=== PATIENT | female | born 1945 | race Caucasian/White ===

== ENCOUNTER 2018-03-27 15:43 | Observation (INO) | payer MEDICARE, SELFPAY ==
[2018-03-27] VITALS (13 sets, daily range): BP systolic 139–155; BP diastolic 55–79; PULSE 64–83; RESP 14–19; TEMP 36.6–36.9; O2SAT 94–100; BMI 22.6; BMI 22.1; BMI 22.2
[2018-03-27 16:06] LABS: Bedside Glucose 101 mg/dL (70-110)
--- NOTE | 2018-03-27 16:14 | ED.VISSUMM ---
- ER Visit Summary Date of Service: 03/27/18 Chief Complaint: Forgetfulness History of Present Illness: The patient is a 72 F brought in by family. They noted around 1:00 this afternoon that she seemed to be forgetful about things that she should remember. Initial example is that she noted an appointment with a Dr. Sue on her calendar and did not know who this was. Family states that she was okay earlier in the day and at lunchtime. She denies any pain. She states she just feels like her brain is not clicking like normal. Physical Examination: Vital signs are unremarkable. Patient is sitting upright in bed no acute distress. Head and neck examination unremarkable. Heart is regular rate and rhythm. Lung sounds are clear. Abdomen is soft and nontender. Neuro exam reveals an NIH score of 2. She receives 1.4 level of consciousness questions not knowing what year it is. She receives one point for very mild problems with a aphasia. Test Results: EKG is sinus at 77 with no sign of acute ischemia. Noncontrast head CT shows no acute abnormality. There is mild chronic ischemic change. CBC and chemistry studies unremarkable. Urinalysis normal. Troponin negative. Emergency Department Course and Treatment: Patient is resting comfortably on repeat examination. She was sent for CTA of the head and neck. CTA of the head is normal. CTA of the neck shows mild atherosclerotic disease. There is no significant stenosis. At this time patient be admitted for further stroke workup. Treatment Plan: [] Disposition: Admit Impression: TIA This note was generated with [employer] dictation software. It may contain incorrect words, spelling, and punctuation that were not noted in review of the chart prior to signing ED Disposition - Plan for ED Patient: Chief Complaint: Neuro S/Sx Referrals: Nicolás Ríos DO [Primary Care Provider] -
[2018-03-27 16:46] LABS: Bacteria 0 SEEN /hpf (None Seen); Mucous, Urine 0 SEEN /hpf (<or=2+); Red Blood Cells-Urine 0 SEEN /hpf (0-5)
[2018-03-27 16:46] LABS: Absolute Lymphocyte Count 2.41 X10^3/ul (0.83-4.51); Absolute Neutrophil Count 3.7 X10^3/uL (2.0-7.7); Basophil# 0.03 X10^3/uL; Basophil% 0.4 % (0-1); Eosinophil# 0.08 X10^3/uL; Eosinophils% 1.1 % (0-5); Hematocrit 39.7 % (37-47); Hemoglobin 12.9 g/dl (12.0-15.0); Lymphocyte # 2.41 X10^3/ul (4.0); Lymphocyte % 34.3 % (19-41); Mean Corp Hgb Conc 32.5 g/gl (32-36); Mean Corpuscular Hgb 30.3 pg (27.0-32.0); Mean Corpuscular Volume 93.2 fL (81-99); Mean Platelet Vol. 9.8 fl (6.2-12.0); Monocyte# 0.84 X10^3/uL; Monocyte% 11.9 % (0-10); Neutrophil # 3.66 X10^3/uL (2.7-7.7); Neutrophil % 52.2 % (47-70); POSITIVE COUNT NO; POSITIVE DIFFERENTIAL NO; POSITIVE MORPHOLOGY NO; Platelet Count 304 K/mm3 (150-450); RBC Distribution Width CV 13.5 % (11.6-14.6); RBC Distribution Width SD 44.5 fl (35.1-43.9); Red Blood Count 4.26 M/mm3 (4.2-5.4)
[2018-03-27] MEDS: 0.9% Normal Saline 1,000 ML 100 ML IV (16:47)
[2018-03-27 16:49] LABS: Anion Gap 5 (5-15); BUN 23 mg/dL (7-18); BUN/Creat Ratio 25.1 RATIO (10-20); Calcium,Total 8.7 mg/dL (8.5-10.1); Chloride 105 mmol/L (98-107); Creatinine, Serum 0.92 mg/dL (0.55-1.02); EST Glomerular Filtration Rate 64 mL/min (>60); Est Glom Filt Rate - Afr Amer 77 mL/min (>60); Estimated Creatinine Clearance 44.38 ml/min; Glucose 93 mg/dL (74-106); Potassium 3.8 mmol/L (3.5-5.1); Sodium Level 139 mmol/L (136-145)
[2018-03-27 16:51] LABS: Color, Urine Yellow (Yellow); Glucose, Dipstick Normal (Normal); Ketone-Dipstick Negative (Negative); Leukocyte Esterase-Dipstick 25 /ul (Negative); Nitrite-Dipstick Negative (Negative); Occult Blood-Urine Negative /ul (Negative); Protein-Dipstick Negative (Negative); Specific Gravity, Urine 1.005 (1.002-1.030); Urine Bilirubin Dipstick Negative (Negative); Urine Clarity Clear (Clear); Urine Urobilinogen Normal (Normal)
[2018-03-27 16:59] LABS: Squamous Epithelial Cells - UA 0-5 SEEN /hpf (5-10); White Blood Cells 0-5 SEEN /hpf (0-5)
[2018-03-27 17:20] LABS: International Normalized Ratio 1.1; Prothrombin Time (Protime)PT. 13.9 SECONDS (11.7-14.9)
[2018-03-27 17:21] LABS: Partial Thromboplast Time 28.6 Seconds (24.1-36.2)
--- NOTE | 2018-03-27 18:39 | NURSING ---
Pepper notified patient may transfer to PCU.
--- NOTE | 2018-03-27 19:03 | PCM.HP.STD ---
Problem List (1) Acute forgetfulness Status: Acute (2) Raynaud disease Status: Chronic Qualifiers: History of Present Illness Date of Admission: 03/27/18 Chief Complaint: Acute onset of forgetfulness The patient is a 72 year old F with history of Raynaud's disease on aspirin and hypertension on amlodipine came to ER after she was noticed sudden onset of forgetfulness about 1 PM this afternoon. She was not able to remember about Dr. Weldon, who is the PCP of her and had an appointment today. Her family or she denies any localized symptoms of weakness, numbness or tingling, facial droop, change in his speech or dysphagia or change in vision. In ED, ER physician noted NIH stroke scale 2 based 1 for level of consciousness, not knowing what year it is and 1 for mild problem with aphasia but to my exam NIH stroke score 0. Initial ED labs unremarkable. EKG normal sinus rhythm at [address] neck shows mild atherosclerotic disease but no evidence of hemodynamically significant stenosis. CT head unremarkable. CT brain no acute intracranial abnormality. Past Medical History Past Medical History (Chronic Problems): Chronic Problems (Last Updated 11/22/17 @ 08:28 by Jessica Walker) Raynaud disease (Chronic) Medical History: Medical History (Last Updated 11/22/17 @ 08:28 by Jessica Walker) History of pneumonia Z87.01 unusual fatigue Allergies No Known Allergies Allergy (Verified 06/29/16 10:33) Home Medications: Ambulatory Orders Medication Instructions Recorded mometasone 0.1 % topical ointment 1 applic TOPICAL QDAY #45 g 10/18/17 amlodipine 2.5 mg tablet 2.5 - 5 mg PO DAILY 11/22/17 Aspirin E.C. [Ecotrin] 81 mg PO DAILY@0800 03/27/18 Multivitamin [Multiple Vitamins] 1 tab PO DAILY 03/27/18 Smoking Status: Never smoker - *Family History Maternal History Items: - - no coronary artery disease Paternal History Items: - - no coronary artery disease Review of Systems Constitutional: Denies: Chills, Fever, Weight Change HEENT: Denies: Head Aches, Sinus Congestion, Sinus Drainage Cardiovascular: Denies: Chest Pain, Palpitations Respiratory: Denies: Cough, Shortness of breath at rest, Sputum production Gastrointestinal: Denies: Abdominal Pain, Nausea, Vomiting Genitourinary: Denies: Dysuria Musculoskeletal: Denies: Joint Pain, Joint Tenderness Skin: Denies: Rash, Wounds Neurological: Denies: Balance problems, Blurred vision, Double vision, Change in Speech, Focal weakness, Numbness, Tingling Psychiatric: Denies: Anxiety, Depression, Homicidal Ideations, Suicidal Ideations Hematologic/ Lymphatic: Denies: Easy Bruising, Easy Bleeding VTE Information - Inpt Only VTE Present on Admission: No VTE Mechan Device Prophylaxis: None - Not indicated VTE Pharm Prophylaxis ordered?: Yes Patient Problems: Active and Suspected Problems (Last Updated 11/22/17 @ 08:28 by Jessica Walker) Acute forgetfulness (Acute) - Physical Exam General: Alert, Oriented x3, Cooperative HEENT: Atraumatic, PERRLA, EOMI, Normocephalic Neck: Supple, No JVD, Negative Carotid Bruits Lungs: Clear to auscultation, Normal air movement Cardiovascular: Regular rate, Regular Rhythm, Normal S1, Normal S2, No murmurs Abdomen: Bowel Sounds Present, Soft, Non Tender, Non-Distended Extremities: No edema, Capillary Refill Less than 3 Seconds Skin: No rashes, No breakdown Musculoskeletal: No Tenderness to Palpation of Joints or Extremities Neurological: Cranial nerves II-XII grossly intact, Deep Tendon Reflexes 2+/4 and Symmetrical, Neuro grossly intact, Muscle tone normal, Sensory exam intact to light touch and pain, Coordination normal, - - NIH stroke scale 0 Psych/Mental Status: Normal Affect, Appropriate Vital Signs Temp Pulse Resp BP Pulse Ox 98.4 F 74 16 140/78 H 98 03/27/18 15:43 03/27/18 18:30 03/27/18 18:30 03/27/18 18:30 03/27/18 18:30 Oxygen Flow Rate (L/min) 2 Oxygen Delivery Method Nasal Cannula Weight: 128 lb Body Mass Index (BMI) 22.6 Finger Stick Blood Glucose 102 Laboratory Tests Past 24 Hrs 03/27/18 03/27/18 03/27/18 16:00 16:00 16:00 WBC 7.0 RBC 4.26 Hgb 12.9 Hct 39.7 MCV 93.2 MCH 30.3 MCHC 32.5 RDW 13.5 RDW Differential 44.5 H Plt Count 304 MPV 9.8 Immature Gran % (Auto) 0.100 Neut % (Auto) 52.2 Lymph % (Auto) 34.3 [place] % (Auto) 11.9 H Eos % (Auto) 1.1 Baso % (Auto) 0.4 Absolute Neuts (auto) 3.7 Absolute Lymphs (auto) 2.41 Total Counted Not Reportable PT 13.9 INR 1.1 APTT 28.6 Sodium 139 Potassium 3.8 Chloride 105 Carbon Dioxide 29.0 Anion Gap 5 BUN 23 H Creatinine 0.92 Estim Creat Clear Calc 44.38 Est GFR (MDRD) Af Amer 77 Est GFR (MDRD) Non-Af 64 BUN/Creatinine Ratio 25.1 H Glucose 93 Calcium 8.7 Troponin I < 0.015 Urine Color Urine Clarity Urine pH Ur Specific [place] Urine Protein Urine Glucose (UA) Urine Ketones Urine Occult Blood Urine Nitrite Urine Bilirubin Urine Urobilinogen Ur Leukocyte Esterase Urine RBC Urine WBC Ur Squamous Epith Cells Urine Bacteria Urine Mucus 03/27/18 16:40 WBC RBC Hgb Hct MCV MCH MCHC RDW RDW Differential Plt Count MPV Immature Gran % (Auto) Neut % (Auto) Lymph % (Auto) [place] % (Auto) Eos % (Auto) Baso % (Auto) Absolute Neuts (auto) Absolute Lymphs (auto) Total Counted PT INR APTT Sodium Potassium Chloride Carbon Dioxide Anion Gap BUN Creatinine Estim Creat Clear Calc Est GFR (MDRD) Af Amer Est GFR (MDRD) Non-Af BUN/Creatinine Ratio Glucose Calcium Troponin I Urine Color Yellow Urine Clarity Clear Urine pH 7.0 Ur Specific [place] 1.005 Urine Protein Negative Urine Glucose (UA) Normal Urine Ketones Negative Urine Occult Blood Negative Urine Nitrite Negative Urine Bilirubin Negative Urine Urobilinogen Normal Ur Leukocyte Esterase 25 H Urine RBC 0 SEEN Urine WBC 0-5 SEEN Ur Squamous Epith Cells 0-5 SEEN Urine Bacteria 0 SEEN Urine Mucus 0 SEEN POC Glucose 03/27/18 15:55 POC Glucose 101 Assessment/Plan All Active Problems (Last Updated 11/22/17 @ 08:28 by Jessica Walker) Acute forgetfulness (Acute) Acute bronchitis (Acute) Pneumonia (Acute) Chest pain (Acute) The patient is a 72 year old F with history of Raynaud's disease on aspirin and hypertension on amlodipine came to ER after she was noticed sudden onset of forgetfulness about 1 PM this afternoon. She was not able to remember about Dr. Weldon, who is the PCP of her and had an appointment today. Her family or she denies any localized symptoms of weakness, numbness or tingling, facial droop, change in his speech or dysphagia or change in vision. In ED, ER physician noted NIH stroke scale 2 based 1 for level of consciousness, not knowing what year it is and 1 for mild problem with aphasia but to my exam NIH stroke score 0. Initial ED labs unremarkable. EKG normal sinus rhythm at [address] neck shows mild atherosclerotic disease but no evidence of hemodynamically significant stenosis. CT head unremarkable. CT brain no acute intracranial abnormality. 1. Acute onset of forgetfulness, exact etiology unclear: Rule out TIA/stroke: Patient is being admitted for observation as per TIA protocol. MRI brain without contrast, 2D echo ordered. Neurochecks as per stroke protocol. Neuro consult. PT/OT and speech evaluation ordered. Blood pressure is controlled. Glucose in BMP 93. Continue aspirin. Fasting lipid profile and ESR ordered. 2. Hypertension: Blood pressure is controlled as per her age. Continue amlodipine. 3. Other comorbidities include Reynaud;s disease DVT prophylaxis, moderate risk: On heparin 500 subcutaneous twice daily. This note was generated with [employer] dictation software. Every effort was made to ensure accuracy, however computerized video game technician mistakes may persist. Clinical Impression(s) from Imaging Studies Brain CT 03/27/18 16:19 IMPRESSION: No acute intracranial abnormality. Mild chronic ischemic changes. Chest X-Ray 03/27/18 16:30 IMPRESSION: No acute thoracic pathology. Head CTA 03/27/18 16:56 IMPRESSION: Normal [place] without a demonstrated aneurysm or hemodynamically significant stenosis. Neck CTA 03/27/18 16:57 IMPRESSION: Mild atherosclerotic disease. No evidence for hemodynamically significant stenosis utilizing NASCET criteria Code Visit OBSV E&M: 26219 Initial observation care L3
[2018-03-27 19:46] LABS: Thyroid Stim Hormone (TSH) 1.09 uIU/mL (0.358-3.74)
[2018-03-27 20:56] LABS: Erythrocyte Sedimentation Rate 32 mm/hr (0-30)
[2018-03-27] MEDS: Famotidine 20 MG Tablet PO (22:01)
[2018-03-27] MEDS: Heparin Injection (Vial) 5,000 UNIT/ML VIAL 5000 UNIT SC (22:01)
[2018-03-28] VITALS (9 sets, daily range): BP systolic 109–127; BP diastolic 53–88; PULSE 60–66; RESP 14–18; TEMP 36.7–36.9; O2SAT 97–99; BMI 22.1
[2018-03-28 06:31] LABS: Cholesterol 185 mg/dL (200); High Density Lipoprotein 54 mg/dL; Triglycerides 65 mg/dL; Very Low Density Lipoprotein 13 mg/dL (5-40)
[2018-03-28] MEDS: Aspirin E.C. 81 MG Tablet PO (09:09)
[2018-03-28] MEDS: amLODIPine 2.5 MG Tablet PO (09:09)
[2018-03-28] MEDS: Heparin Injection (Vial) 5,000 UNIT/ML VIAL 5000 UNIT SC (09:09)
[2018-03-28] MEDS: Famotidine 20 MG Tablet PO (09:09)
[2018-03-28] MEDS: Multivitamins,Therapeutic Tablet 1 TABLET PO (09:09)
--- NOTE | 2018-03-28 09:38 | PCM.CONS.GEN ---
Problem List (1) Acute forgetfulness Status: Acute (2) Amnesia Status: Acute Reason for Consult Date of Consultation: 03/28/18 Reason for Consultation: Amnesia History of Present Illness: The patient is a 72 year old CF with PMH HTN, Raynaud's phenomenon admitted with acute episode of amnesia. History is obtained from patient, her and medical records. Per yesterday (03/27/18) around 1 PM she was looking at her calendar and had a doctor's name written on it but could not remember who it was, though she had visited that same doctor multiple times in the past, per she could not remember what she did that morning, or what she ate for lunch, per patient she could not remember the year when she was in the ED, per she was repeating herself a lot during the episode but probably she became amnestic for few hours. At present she is back to her baseline, denies any SANDS, visual symptoms, sensory loss, focal motor weakness, or speech disturbances. Denies any witnessed seizures. Lives with , denies any falls, does drive, does not use cane or walker to ambulate. Per ED documentation NIHSS was 2 on admission but per hospitalist documentation NIHSS was 0. 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 SBP on admission was >150 mmHg. [] Past Medical History Past Medical History (Chronic Problems): Chronic Problems (Last Updated 11/22/17 @ 08:28 by Jessica Walker) Raynaud disease (Chronic) Medical History: Medical History (Last Updated 11/22/17 @ 08:28 by Jessica Walker) History of pneumonia Z87.01 unusual fatigue Allergies No Known Allergies Allergy (Verified 06/29/16 10:33) Home Medications: Ambulatory Orders Medication Instructions Recorded mometasone 0.1 % topical ointment 1 applic TOPICAL QDAY #45 g 10/18/17 amlodipine 2.5 mg tablet 2.5 - 5 mg PO DAILY 11/22/17 Aspirin E.C. [Ecotrin] 81 mg PO DAILY@0800 03/27/18 Multivitamin [Multiple Vitamins] 1 tab PO DAILY 03/27/18 Lives: Spouse/ Significant Other Smoking Status: Never smoker Alcohol: Occasional Drugs: None - *Family History Maternal History Items: - - no coronary artery disease Paternal History Items: - - no coronary artery disease Review of Systems Constitutional: Reports: - - complete ROS negative except as documented in HPI Patient Problems: Active and Suspected Problems (Last Updated 11/22/17 @ 08:28 by Jessica Walker) Acute forgetfulness (Acute) Amnesia (Acute) - Physical Exam General: Alert HEENT: Normocephalic Neck: Supple Lungs: Normal air movement Cardiovascular: Normal S1, Normal S2 Abdomen: Bowel Sounds Present Extremities: No cyanosis Skin: No rashes Musculoskeletal: No Tenderness to Palpation of Joints or Extremities Neurological: Cranial nerves II-XII grossly intact, Deep Tendon Reflexes 2+/4 and Symmetrical, Neuro grossly intact, Motor Exam 5/5 strength throughout, Muscle tone normal, Sensory exam intact to light touch and pain, Coordination normal Psych/Mental Status: Normal Affect Vital Signs Temp Pulse Resp BP Pulse Ox 98.4 F 66 18 127/88 H 98 03/28/18 08:10 03/28/18 08:10 03/28/18 08:10 03/28/18 08:10 03/28/18 08:10 Oxygen Delivery Method Room Air Weight: 57.7 kg Body Mass Index (BMI) 22.1 Intake and Output for Last 24 Hours 03/26/18 03/27/18 03/28/18 23:59 23:59 23:59 Intake Total 606 / 606 552 / 552 Balance 606 / 606 552 / 552 Laboratory Tests Past 24 Hrs 03/27/18 03/27/18 03/28/18 20:28 20:28 05:20 ESR 32 H Troponin I < 0.015 Triglycerides 65 Cholesterol 185 LDL Cholesterol 118 VLDL Cholesterol 13 HDL Cholesterol 54 Assessment/Plan All Active Problems (Last Updated 11/22/17 @ 08:28 by Jessica Walker) Acute forgetfulness (Acute) Amnesia (Acute) Acute bronchitis (Acute) Pneumonia (Acute) Chest pain (Acute) The patient is a 72 year old CF with PMH HTN, Raynaud's phenomenon admitted with acute episode of amnesia. History is obtained from patient, her and medical records. Per yesterday (03/27/18) around 1 PM she was looking at her calendar and had a doctor's name written on it but could not remember who it was, though she had visited that same doctor multiple times in the past, per she could not remember what she did yesterday morning, or what she ate for lunch, per patient she could not remember the year when she was in the ED, per she was repeating herself a lot during the episode but probably she became amnestic for few hours. At present she is back to her baseline, denies any SANDS, visual symptoms, sensory loss, focal motor weakness, or speech disturbances. Denies any witnessed seizures. Lives with , denies any falls, does drive, does not use cane or walker to ambulate. Per ED documentation NIHSS was 2 on admission but per hospitalist documentation NIHSS was 0. 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 SBP on admission was >150 mmHg. Impression Unlikely to be TIA/Stroke or seizures at present Likely TGA Plan -MRI brain and CTA head/neck images reviewed -On ASA -Await EEG -Labs reviewed- UA-LE 25, WBCs 0-5, ESR 32, rest unremarkable -Better control of BP, will defer to primary team -Further medical management per primary team -GI/DVT prophylaxis -Fall precautions -Follow up with Neurology as outpatient in 6 weeks -Please call with questions if any -Thank you for allowing us to participate in patient's care and management I spent 60 minutes taking history, doing physical examination, reviewing medical records, coordinating care and counseling the patient. Code Visit Inpatient E&M: 60909 Init Hosp L3
--- NOTE | 2018-03-28 12:24 | PCM.PN.HOSP ---
Patient Problems: Active and Suspected Problems (Last Updated 11/22/17 @ 08:28 by Jessica Walker) Acute forgetfulness (Acute) Amnesia (Acute) Subjective: Doing well and feels back to baseline. No numbness, tinglin gin her extremities. No weakness, or blurry vision and she denies headaches. This episode of amnesia was transient, and acute. She denies having anything similar in the past. Vitals/I&O's: Vital Signs Temp Pulse Resp BP Pulse Ox 98.4 F 66 18 127/88 H 98 03/28/18 08:10 03/28/18 08:10 03/28/18 08:10 03/28/18 08:10 03/28/18 08:10 Oxygen Delivery Method Room Air Weight: 127 lb 3.307 oz Body Mass Index (BMI) 22.1 Intake and Output for Last 24 Hours 03/26/18 03/27/18 03/28/18 23:59 23:59 23:59 Intake Total 606 / 606 552 / 552 Balance 606 / 606 552 / 552 General: Alert, Oriented x3, Cooperative, No apparent distress HEENT: Atraumatic, PERRLA, EOMI, Normocephalic Oral: Moist Mucosa Neck: Supple, No JVD Lungs: Clear to auscultation, Normal air movement, No rhonchi, No wheeze, No rales Cardiovascular: Regular rate, Regular Rhythm, Normal S1, Normal S2, No murmurs Abdomen: Soft, Non Tender, Non-Distended, No Hepato-splenomegaly Extremities: No clubbing, No cyanosis, No edema Neurological: Cranial nerves II-XII grossly intact, Neuro grossly intact, Motor Exam 5/5 strength throughout, Sensory exam intact to light touch and pain, - - No facial droop, tongue deviation Psych/Mental Status: Normal Affect, Appropriate Laboratory Results 03/27/18 20:28: ESR 32 H 03/27/18 20:28: Troponin I < 0.015 03/28/18 05:20: Triglycerides 65, Cholesterol 185, LDL Cholesterol 118, VLDL Cholesterol 13, HDL Cholesterol 54 Current Medications Acetaminophen (Tylenol) 650 mg PO Q4H PRN PRN PRN Reason: Headache/Temp>99F Amlodipine Besylate (Norvasc) 2.5 mg PO DAILY [facility]AL Last Admin: 03/28/18 09:09 Dose: 2.5 mg Aspirin (Ecotrin) 81 mg PO DAILY@0800 [facility] Last Admin: 03/28/18 09:09 Dose: 81 mg Famotidine (Pepcid) 20 mg PO BID [facility] Last Admin: 03/28/18 09:09 Dose: 20 mg Heparin Sodium (Porcine) (Heparin Na) 5,000 unit SC BID [facility] Last Admin: 03/28/18 09:09 Dose: 5,000 unit Sodium Chloride () 250 mls @ 15 mls/hr IV .[id number] PRN PRN Reason: SALINE FLUSH Labetalol HCl (Trandate) 10 mg IV Q10M PRN PRN Reason: MAINTAIN SBP GOALS Stop: 03/28/18 19:07 Multivitamins (Multivitamin) 1 tablet PO DAILY@0800 [facility] Last Admin: 03/28/18 09:09 Dose: 1 tablet Sodium Chloride () 5 - 30 ml IV UD PRN PRN Reason: SALINE FLUSH Triamcinolone Acetonide (Kenalog Ointment) 1 applic TOPICAL DAILY [facility] Last Admin: 03/28/18 09:09 Dose: Not Given Medical Necessity - Tobacco Use Smoking Status: Never smoker Assessment/Plan All Active Problems (Last Updated 11/22/17 @ 08:28 by Jessica Walker) Acute forgetfulness (Acute) Amnesia (Acute) 1. Acute amnesia - She presented with confusion/forgetfullness - Workup in the ER and this morning (CTA neck/head, and MRI brain) r/o stroke - EEG was performed today per neurology, awaiting read - She is on ASA at home and will continue, will not add plavix as this is not a stroke - If EEG is normal will DC home today with follow-up to PCP and neurology for further possible work-up including metabolic causes - PT/OT and speech are also consulted - BP on admission was elevated however currently back at baseline per the patient at 110-130 systolic - No changes in medications at this time will monitor 2. Reynauds - stable - c/w norvasc DVT PPX: Heparin SC Diet: Regular Dispo: DC home today or tomorrow with f/u PCP and neuro Code Visit Inpatient E&M: 27263 Subs Hosp L2
--- NOTE | 2018-03-28 13:18 | EEG ---
- Electroencephalogram Date of service 03/28/2018 History EEG is being done in this 72 yr F to rule out seizures EEG Description: This is an 18 channel EEG with 10-20 lead placement system. Bipolar montages, Referential and Circumferential montages were reviewed. Photic stimulation and Hyperventilation were performed. The posterior dominant rhythm is 10-11 HZ synchronous, symmetric, reacting to eye opening and closing. Photo stimulation elicited normal driving response but no abnormal photoparoxysmal response, Hyperventilation did not elicit any abnormal photoparoxysmal response. Sleep was identified. There is no abnormal background slowing noted. There was overall low voltage waveforms noted throughout the record. There was no epileptiform discharges or electrographic seizures noted during this recording. EEG Interpretation This is a normal awake and asleep EEG. There is no epileptiform discharges or electrographic seizures noted during the record.
--- NOTE | 2018-03-28 15:01 | PCM.DC ---
- Discharge Diagnoses Current Active Problems: Current Active and Chronic Problems (Last Updated 11/22/17 @ 08:28 by Jessica Walker) Acute forgetfulness (Acute) Amnesia (Acute) You will use the following diet at home:: Regular Your food should be the consistency of: Regular Discharge Activity: Return to Normal Activity Allergies/Adverse Reactions: Allergies No Known Allergies Allergy (Verified 06/29/16 10:33) Medications to take at Discharge mometasone 0.1 % topical ointment 1 applic TOPICAL QDAY #45 g 10/18/17 amlodipine 2.5 mg tablet 2.5 - 5 mg PO DAILY 11/22/17 Aspirin E.C. [Ecotrin] 81 mg PO DAILY@0800 03/27/18 Multivitamin [Multiple Vitamins] 1 tab PO DAILY 03/27/18 Primary Care Physician: Nicolás Ríos DO [Primary Care Provider] - Please follow up with your Primary Care Physician in: 3-5 days Test Results: Test results from this visit will be discussed in further detail at your follow-up appointment, if applicable. Please Follow Up With: Alexa Hutchinson MD When: 2-4 weeks Proposed Discharge Date: 03/28/18
--- NOTE | 2018-03-28 15:07 | PCM.DC.SUM ---
Discharge Date and Diagnosis - Problem List Patient Problems: Active and Suspected Problems (Last Updated 11/22/17 @ 08:28 by Jessica Walker) Acute forgetfulness (Acute) Amnesia (Acute) Date of Admission: 03/27/18 Date of Discharge: 03/28/18 - Primary Discharge Diagnosis Active and Suspected Problems (Last Updated 11/22/17 @ 08:28 by Jessica Walker) Acute forgetfulness (Acute) Amnesia (Acute) - Secondary Discharge Diagnosis Chronic Problems (Last Updated 11/22/17 @ 08:28 by Jessica Walker) Raynaud disease (Chronic) Hospital Course and Treatment Imaging Results: CT Brain: IMPRESSION: No acute intracranial abnormality. Mild chronic ischemic changes CXR: IMPRESSION: No acute thoracic pathology CTA Head: IMPRESSION: Normal [place] without a demonstrated aneurysm or hemodynamically significant stenosis. CTA Neck: IMPRESSION: Mild atherosclerotic disease. No evidence for hemodynamically significant stenosis utilizing NASCET criteria MRI Brain: IMPRESSION: Moderate periventricular white matter ischemic change without evidence for acute infarct. 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 Incidental finding of Chiari I malformation. EEG: This is an 18 channel EEG with 10-20 lead placement system. Bipolar montages, Referential and Circumferential montages were reviewed. Photic stimulation and Hyperventilation were performed. The posterior dominant rhythm is 10-11 HZ synchronous, symmetric, reacting to eye opening and closing. Photo stimulation elicited normal driving response but no abnormal photoparoxysmal response, Hyperventilation did not elicit any abnormal photoparoxysmal response. Sleep was identified. There is no abnormal background slowing noted. There was overall low voltage waveforms noted throughout the record. There was no epileptiform discharges or electrographic seizures noted during this recording. EEG Interpretation This is a normal awake and asleep EEG. There is no epileptiform discharges or electrographic seizures noted during the record. Consultantations: Neurology Operations: None Summary of Care Provided: HPI: The patient is a 72 year old F with history of Raynaud's disease on aspirin and hypertension on amlodipine came to ER after she was noticed sudden onset of forgetfulness about 1 PM this afternoon. She was not able to remember about Dr. Weldon, who is the PCP of her and had an appointment today. Her family or she denies any localized symptoms of weakness, numbness or tingling, facial droop, change in his speech or dysphagia or change in vision. In ED, ER physician noted NIH stroke scale 2 based 1 for level of consciousness, not knowing what year it is and 1 for mild problem with aphasia but to my exam NIH stroke score 0. Initial ED labs unremarkable. EKG normal sinus rhythm at [address] neck shows mild atherosclerotic disease but no evidence of hemodynamically significant stenosis. CT head unremarkable. CT brain no acute intracranial abnormality Hospital Course: 1. Amnesia - She presented with acute onset amnesia on the day of admission without weakness, numbness or tingling. Per her and her she never had anything like this before. Her symptoms resolved fairly quickly and imaging was negative for stroke and this was unlikely to be a TIA per neurology. An EEG was also normal on day of discharge. She will need further investigation as an outpatient and will have follow-up with Neurology. 2. Raynauds - She is on norvasc 2.5 mg for this issues and this remains unchanged. There was some discussion if this should be increase because of elevated SBP in the ER on admission, however this resolved on day of discharge and both and patient state that she is usually low anyway. Greater than 30 minutes was spent on discharging patient. Discharge Activity: Return to Normal Activity Home Medications: Medications to take at Discharge mometasone 0.1 % topical ointment 1 applic TOPICAL QDAY #45 g 10/18/17 amlodipine 2.5 mg tablet 2.5 - 5 mg PO DAILY 11/22/17 Aspirin E.C. [Ecotrin] 81 mg PO DAILY@0800 03/27/18 Multivitamin [Multiple Vitamins] 1 tab PO DAILY 03/27/18 Primary Care Physician: Nicolás Ríos DO [Primary Care Provider] - Please follow up with your Primary Care Physician in: 3-5 days Please Follow Up With: Alexa Hutchinson MD When: 2-4 weeks Medical Necessity - Tobacco Use Smoking Status: Never smoker Meaningful Use Info Meaningful Use Diagnoses (Choose all that apply): None applicable Code Visit Inpatient E&M: 37997 Disch Hosp - Greater than 30 minutes was spent discharging patient
== END 2018-03-28 15:30 | disposition home or self-care (01) ==
LOC: ED 16:24 → PCU 18:37
PROVIDERS: Admitting Provider Internal Medicine; Emergency Provider Emergency Medicine; Family Provider Student in an Organized Health Care Education/Training Program; PCP Student in an Organized Health Care Education/Training Program; Visit Provider Family Medicine
DX: R41.3 Other amnesia (principal); I73.00 Raynaud's syndrome without gangrene; I10 Essential (primary) hypertension; R29.702 NIHSS score 2; Z79.899 Other long term (current) drug therapy; Z79.82 Long term (current) use of aspirin; R47.01 Aphasia
CPT/HCPCS: 36415; 70450; 70496; 70498; 70551; 71045; 80048; 80061; 81001; 82962; 84443; 84484; 85025; 85610; 85652; 85730; 92507; 93005; 93306; 95819; 96360; 96361; 96372; 97161; 97166; 99218; 99283; J7030; Q9967; A4216; G0378

== ENCOUNTER → 2020-04-14 07:16 | Outpatient (CLI) | payer MEDICARE, SELFPAY ==
[2020-04-02 09:12] VITALS: BMI 22.1
--- NOTE | 2020-04-14 07:16 | BI_ITS ---
MAMMOGRAPHY - BILATERAL SCREENING REASON FOR EXAM: Female, 74 years old. Routine annual screening examination. PERTINENT HISTORY: Aunt with breast cancer. TECHNIQUE: Digital bilateral breast fátima (3D mammographic acquisition) in the CC and MLO projections. 2-D mediolateral oblique (MLO) and craniocaudad (CC) views of both breasts were obtained. CAD: Full Field Digital Mammography with Computer Added Detection was performed. COMPARISON: Comparison is made with prior study dated 07/13/2017. FINDINGS: Breast Composition: There are scattered areas of fibroglandular density. There are no dominant masses or suspicious calcifications. Stable small benign appearing bilateral axillary lymph nodes. No other significant abnormalities are identified. There has been no significant change since the prior study. BI/SCREEN MAMM (CAD) W/FÁTIMA BILAT IMPRESSION: Stable bilateral screening mammogram. Yearly follow-up mammogram recommended. (A) ASSESSMENT CATEGORY: BIRADS Category 2: Benign. A letter regarding these results will be sent to the patient by the facility within 30 days. Approximately 10% of breast cancers are not detected by mammography. A normal mammogram should not delay biopsy of a clinically suspicious abnormality. [id number] Electronically Signed: Colt Montoya, at 8:20 EDT , Service support ,
== END ==
PROVIDERS: PCP Student in an Organized Health Care Education/Training Program; Referring Provider Nurse Practitioner Women's Health; Visit Provider Nurse Practitioner Women's Health
DX: Z12.31 Encounter for screening mammogram for malignant neoplasm of breast (principal); Z80.3 Family history of malignant neoplasm of breast
CPT/HCPCS: 77063; 77067

== ENCOUNTER → 2021-04-09 09:27 | Outpatient (CLI) | payer MEDICARE, SELFPAY ==
--- NOTE | 2021-04-09 09:29 | US_ITS ---
STUDY: ULTRASOUND BREAST - RIGHT REASON FOR EXAM: Female, 75 years old. Abnormal screening mammogram. TECHNIQUE: Axial and longitudinal images of the RIGHT breast were performed with a high resolution ultrasound transducer. # OF IMAGES: 31 COMPARISON: Comparison is made with prior mammogram done earlier in the day. FINDINGS: RIGHT Breast: No sonographic abnormality is seen. There is asymmetrical breast tissue. US/Breast Limited Unilateral IMPRESSION: No sonographic abnormality is seen. ASSESSMENT CATEGORY: BIRADS Category 1: Negative. A letter regarding these results will be sent to the patient by the facility within 30 days. Electronically Signed: Colt Montoya MD at 11:11 EDT , Service support ,
--- NOTE | 2021-04-09 09:29 | BI_ITS ---
MAMMOGRAPHY - BILATERAL DIAGNOSTIC REASON FOR EXAM: Female, 75 years old. Right breast lump with tenderness. PERTINENT HISTORY: Aunt with breast cancer. TECHNIQUE: Digital bilateral breast joleen (3D mammographic acquisition) in the CC and MLO projections. 2-D mediolateral oblique (MLO) and craniocaudad (CC) views of both breasts were obtained. CAD: Full Field Digital Mammography with Computer Added Detection was performed. COMPARISON: Comparison is made with prior examination dated 04/14/2020 and 07/13/2017. FINDINGS: Breast Composition: There are scattered areas of fibroglandular density. Questionable 2.2 cm x 1.9 cm nodular density in the upper retroareolar region of the right breast. Correlation with ultrasound is recommended. No other significant abnormalities are identified. BI/DIAG MAMM W/CAD, BILAT IMPRESSION: Possible 2.2 cm x 1.9 cm nodule in the upper retroareolar region of the right breast as described. Correlation with ultrasound is recommended. ASSESSMENT CATEGORY: BIRADS Category 0: Incomplete. Need additional imaging evaluation. A letter regarding these results will be sent to the patient by the facility within 30 days. Approximately 10% of breast cancers are not detected by mammography. A normal mammogram should not delay biopsy of a clinically suspicious abnormality. Electronically Signed: Colt Montoya MD at 10:50 EDT , Service support ,
== END ==
PROVIDERS: PCP Student in an Organized Health Care Education/Training Program; Referring Provider Nurse Practitioner Women's Health; Visit Provider Nurse Practitioner Women's Health
DX: N63.41 Unspecified lump in right breast, subareolar (principal)
CPT/HCPCS: 76642; 77062; 77066; G0279

== ENCOUNTER → 2022-04-12 | Outpatient (CLI) | payer MEDICARE, SELFPAY ==
--- NOTE | 2022-04-12 08:42 | BI_ITS ---
MAMMOGRAPHY - BILATERAL SCREENING REASON FOR EXAM: Female, 76 years old. Routine annual screening examination. PERTINENT HISTORY: Aunt with breast cancer. TECHNIQUE: Digital bilateral breast fátima (3D mammographic acquisition) in the CC and MLO projections. 2-D mediolateral oblique (MLO) and craniocaudad (CC) views of both breasts were obtained. CAD: Full Field Digital Mammography with Computer Added Detection was performed. COMPARISON: Comparison is made with prior study 04/09/2021 and 04/14/2020. FINDINGS: Breast Composition: The breasts are heterogeneously dense, which may obscure small masses. There are no dominant masses or suspicious calcifications. Stable asymmetry of breast tissue or more breast tissue is seen in the upper central portion of the right breast as compared to the left side. Stable small benign appearing bilateral axillary lymph nodes. No other significant abnormalities are identified. There has been no significant change since the prior study. BI/SCRN MAMM (CAD)W/FÁTIMA BILAT IMPRESSION: Stable bilateral screening mammogram. Yearly follow-up mammogram recommended. (A) ASSESSMENT CATEGORY: BIRADS Category 2: Benign. A letter regarding these results will be sent to the patient by the facility within 30 days. Approximately 10% of breast cancers are not detected by mammography. A normal mammogram should not delay biopsy of a clinically suspicious abnormality. [id number] Electronically Signed: Colt Montoya MD at 9:49 EDT ,
== END | disposition home or self-care (01) ==
LOC: OPBI 08:41
PROVIDERS: PCP Student in an Organized Health Care Education/Training Program; Visit Provider Surgery
DX: Z12.31 Encounter for screening mammogram for malignant neoplasm of breast (principal)
CPT/HCPCS: 77063; 77067

== ENCOUNTER → 2022-06-09 | Outpatient (CLI) | payer MEDICARE, SELFPAY ==
--- NOTE | 2022-06-09 16:46 | RAD_ITS ---
STUDY: XR Chest 2 Views 06/09/2022 4:52 PM REASON FOR EXAM: Female, 76 years old. CHEST PAIN shortness of breath COMPARISON: 03/27/2018 TECHNIQUE: XR Chest 2 Views FINDINGS: There is no demonstrated pleural abnormality. Normal heart size. Normal mediastinum. Normal ezequiel. Prominent appearing increased interstitial lung markings. Normal visualized pulmonary arteries. There is atherosclerotic calcification of the aortic arch with tortuosity. There are diffuse degenerative changes of the visualized thoracic spine. There is degenerative osteoarthritis of the bilateral shoulders. There is no demonstrated abnormality of the visualized soft tissue structures of the upper abdomen. RAD/Chest PA and Lateral IMPRESSION: There are no acute findings. Electronically Signed: Dhaval Hamilton MD at 16:57 EDT ,
== END | disposition home or self-care (01) ==
LOC: MTRAD 16:45
PROVIDERS: PCP Student in an Organized Health Care Education/Training Program; Referring Provider Physician Assistant; Visit Provider Physician Assistant
DX: R06.02 Shortness of breath (principal)
CPT/HCPCS: 71046

== ENCOUNTER → 2022-07-14 | Outpatient (CLI) | payer MEDICARE, SELFPAY ==
[2022-07-14 10:13] LABS: Erythrocyte Sedimentation Rate 27 mm/hr (0-30)
[2022-07-14 10:34] LABS: CRP 3.84 mg/L (0.0-3.0); Rheumatoid Factor < 10.0 IU/mL (<15)
[2022-07-15 14:09] LABS: ANTINUCLEAR ANTIBODIES DIRECT Positive (Negative); Anti-Centromere B Ab <0.2 AI (0.0-0.9); Anti-Chromatin <0.2 AI (0.0-0.9); Anti-Jo <0.2 AI (0.0-0.9); Anti-Scleroderma-70 AB <0.2 AI (0.0-0.9); RNP Ab 1.3 AI (0.0-0.9); SJOGREN'S Anti-SS-A test 2.9 AI (0.0-0.9); SJOGREN'S Anti-SS-B test < 0.2 AI (0.0-0.9); Smith Ab <0.2 AI (0.0-0.9)
[2022-07-15 20:48] LABS: Anti-dsDNA Ab 1 IU/mL (0-9)
[2022-07-16 16:09] LABS: Cytoplasmic Ab (C-ANCA) <1:20 titer (Neg:<1:20)
[2022-07-16 18:34] LABS: CCP IgG Antibodies 26 units (0-19)
== END | disposition home or self-care (01) ==
LOC: PAVLAB 09:35
PROVIDERS: PCP Student in an Organized Health Care Education/Training Program; Referring Provider Internal Medicine Critical Care Medicine; Visit Provider Internal Medicine Critical Care Medicine
DX: J84.9 Interstitial pulmonary disease, unspecified (principal)
CPT/HCPCS: 36415; 85652; 86038; 86140; 86200; 86225; 86235; 86256; 86431

== ENCOUNTER → 2022-07-21 | Outpatient (CLI) | payer MEDICARE, SELFPAY ==
--- NOTE | 2022-07-21 14:16 | PFTCOMP_ITS ---
COMPLETE PULMONARY FUNCTION TEST INTERPRETATION Brief HPI: Patient is a 76-year-old female, currently under the care of myself, who presents to [facility] for complete pulmonary function tests secondary to diagnosis of NSIP. Respiratory therapist reports good effort and reproducible results. Interpretation: Forced expiration spirometry shows no large airways obstructive ventilatory defect with an FEV1 of 81% predicted. There is no significant bronchodilator response by strict ATS criteria. Spirograms are of good quality and plateau normally. The respiratory flow volume loop shows a normal pattern. Lung volumes by body plethysmography show a moderately decreased total lung capacity at 2.91 L, 63% predicted. All other lung volumes are reduced symmetrically. Diffusion capacity by carbon monoxide is moderately decreased at 54% predicted. The airway resistance is normal. No previous pulmonary function tests were available for review. Impression: Moderate restrictive ventilatory defect with a symmetric reduction diffusion capacity
== END | disposition home or self-care (01) ==
LOC: PSN 10:40
PROVIDERS: PCP Student in an Organized Health Care Education/Training Program; Referring Provider Internal Medicine Critical Care Medicine; Visit Provider Internal Medicine Critical Care Medicine
DX: J84.9 Interstitial pulmonary disease, unspecified (principal)
CPT/HCPCS: 94060; 94726; 94729

== ENCOUNTER → 2022-10-01 | Outpatient (CLI) | payer MEDICARE, SELFPAY ==
--- NOTE | 2022-10-01 13:05 | PR.OPITP_ITS ---
General Information2 - General Information Admitting Diagnosis: Pulmonary Fibrosis Secondary Diagnosis: Raynauds Syndrome without gangrene - Personal Learning Style/Barriers Personal Learning Style:: Audio/Visual, Written Barriers to Learning: Vision impaired - glasses Stage of change r/t lifestyle modifications: Prepared Educational Classes NM: Living with Chronic Lung Disease: Initial Assessment, Breathing Retraining: Initial Assessment, Exercise: Initial Assessment, Airway clearance: Initial Assessment - Education/Goals Individual Counseling: Initial Assessment: High Blood Pressure, Sedentary Lifestyle NM Patient Goals: Increase muscle strength: Initial Assessment, Improve energy level: Initial Assessment, Improve knowledge of lung disease: Initial Assessment, Improve my quality of life: Initial Assessment Exercise - Initial Assessment - Visit Date of Eval: 10/01/22 Session Number:: 0 - pre-program evaluation - Problem/Goals Problems: No regular exercise, Knowledge deficit exercise guidelines, Knowledge deficit exercise safety Goals:: Resistance: 2-3x/weekly - Physician Prescribed Exercise Modalities: Treadmill, Airdyne, NuStep Frequency (days/week): 3 Duration (Minutes):: 30-45 Intensity: 60-80% of age predicted maximum heart rate reserve Current METSs:: 3.0 Target HR:: 120 - 93-120 THRR Resting Blood Pressure: 133/72 EKG Type: Sinus rhythm - Plan Plan and Plan to Review:: Benefits of exercise, Core components of exercise, How to measure dyspnea level, How to monitor dyspnea level, Exercise intensity, Exercise safety guideline, Home exercise guidelines, Shauna: 3-4/11-13 Home Exercise Mode: Walking Nutrition/Wt Mgmt - Initial - Visit Date of Eval: 10/01/22 Session Number:: 0 - pre-program evaluation - Problems/Goals Goals: BMI 21-25 - Weight Management Admit Height:: 5 ft 4 in Admit Weight:: 125 lb Admit BMI:: 21.4 - Intervention Referral to dietitian:: Yes - low BMI concern Will attend diet classes:: Yes Intervention/Plan: Instruct on ideal BMI & set weight loss goal w/patient - Plan Nutrition Plan: Yes Review BMI or WC & identify target wt & strategies for wt control, Yes Nutrition education class:, Yes Education re: Need for ongoing weight monitoring Psychosocial - Initial Assess - Visit Date of Eval: 10/01/22 Session Number:: 0 - pre-program evaluation - Problems/Goals History of Emotional Disorders: None - Psychosocial Test Tool Used:: Pulmonary QOL, PHQ-9 Questionnaire - Referral to Behavioral Health PS - Interventions: Yes Attend Stress Management Classes, No Referral to [facility] if PHQ-9 score >9:, No Referral to [facility], No Referral to Physician if PHQ-9 if score is 5-9: - Intervention/Plan: See List Interventions/Plan:: Assess stressors,coping strategies & signs of derpression on admission, Instruct/assist pt to develop coping & personal stress Mgt strategies, Instruct patient to recognize signs & symptoms of depression, Instruct patient to recog Oxygen & Oxygen Titration Init - Visit Date of Eval: 10/01/22 Session Number:: 0 - pre-program evaluation - Initial Assessment Oxygen on Admission: None Core Components - Initial - Visit Date of Eval: 10/01/22 Session Number:: 0 - pre-program evaluation - Hypertension Hypertension Diagnosis:: Hypertension ICD-10 I10 [place] [employer] Hypertension Guidelines: [place] [employer] Hypertension Guidelines. Normal BP Less than 120/80. Elevated BP 120/80. Hypertension Stage 1: BP 130-139/80-89. Hypertesnion Stage 2: BP 140 or higher/90 or higher. Hypertension Crisis: BP higher than 180/120 Blood Pressure: 133/72 Outcomes/Goals: Able to verbalize/achieve optimal blood pressure <130/80, Incorporates diet changes & exercise for blood pressure control by DC - Exacerbation Mgmt & Airway Clearance Problems:: No home O2 Patient Reports:: No cough Plan: Monitor SpO2 rest & with exercise, Train O2 safety & systems - Medication Medication Goals: Adherence to prescribed medications, Correct technique/timing & care of MDI, DPI, nebulizer, and spacer. - Diabetes Diabetes:: No Core Components - 30 DAYS Core Components - 60 DAYS Core Components - 90 DAYS Core Components - Final Patient Health Questionnaire Initial Assessment 1. Little interest or pleasure in doing things: Not at all 2. Feeling down, depressed, or hopeless: Several days 3. Trouble falling or staying asleep, or sleeping too much: Not at all 4. Feeling tired or having little energy: Nearly every day 5. Poor appetite or overeating: Not at all 6. Feeling bad about yourself -- or that you are a failure or have let yourself or your family down: Not at all 7. Trouble concentrating on things, such as reading the newspaper or watching television: Not at all 8. Moving or speaking so slowly that other people could have noticed. Or the opposite - being so fidgety or restless that you have been moving around a lot more than usual: Not at all How difficult have these problems made it for you to do your work, take care of things at home, or get along with other people?: Somewhat difficult Total Score: 4 Knowledge Questionaire (BCKQ) - Information Information: [place] COPD Knowledge Questionnaire (BCKQ) This questionnaire is designed to find out what you know about your lung problem. It should be completed without help form anyone else. This usually takes between 10 and 20 minutes. Your answers will help us to find out what information you need to help you to understand and manage your lung condition. Filippo the alatna which you think is the correct answer. Self-Efficacy Initial Assessment We would like to know how confident you are in doing certain activities. Please select your confidence level for:: Select your confidence level for the following using the scale 1-10 where 1 is not at all confident and 10 is totally confident. Your score is the average of all 6 responses. Fatigue: How confident are you that you can keep the fatigue caused by your disease from interfering with the things you want to do? Select Number: 8 Physical Discomfort or Pain: How confident are you that you can keep the physical discomfort or pain of your disease from interfering with the things you want to do? Select Number: 8 Emotional Distress: How confident are you that you can keep the emotional distress caused by your disease from interfering with the things you want to do? Select Number: 8 Other Symptoms or Health Problems: How confident are you that you can keep other symptoms or health problems from interfering with the things you want to do? Select Number: 8 Different Tasks and Activities: How confident are you that you can do the different tasks and activities needed to manage your health condition so as to reduce your need to see a doctor? Select Number: 8 Medication: How confident are you that you can do things other than just taking medication to reduce how much your illness affects your everyday life? Select Number: 8 Total Score:: 8 Nutrition Survey - Nutrition Survey Initial Have you lost >10 lbs over the past 2 months without trying?: No Are you following a special diet at home for diabetes, low fat, or low salt?: No Are you interested in meeting with a dietitian for help understanding your diet?: No Do you eat less than 3 meals a day?: No Do you eat fatty meats (gaston, sausage, ribs, etc), fried foods, desserts, large amounts of salad dressings, margarine, butter, or cheese most days?: No Do you have food allergies? [Enter types in comment field]: No Do you eat in restaurants more than 3 times a week?: No Do you season food with salt, seasoning salt, or garlic salt?: Yes Do you used canned, boxed, frozen meals, or soups, seasoning packets?: Yes Total Score:: 2
--- NOTE | 2022-10-01 13:05 | EX.OP.PR.HP ---
History of Present Illness Arrival date:: 10/01/22 Arrival time:: 12:55 Date of Referral:: 09/23/22 Date of Evaluation: 10/01/22 Referring Physician: Dr. Dequan Hagan Primary Diagnosis: Pulmonary Fibrosis mMR Breathless Scale: When is the patient short of breath? Y/N Grade: Description of Breathlessness: 0 I only get breathless with strenuous exercise. 1 I get short of breath when hurrying on level ground or walking up a slight hill. 2 On level ground, I walk slower than people of the same age because of breathless, or have to stop for breath when walking at my own pace. 3 I stop for breath after walking 100 yards or after a few minutes on level ground. 4 I am too breathless to leave the house or I am breathless when dressing. Respiratory Problems: Yes: Fatigue, Able to Speak in Full Sentences No: Retain Secretions, Limited Range of Motion, Wheezing, Dizziness, Anxiety, Dyspnea at Rest, Dyspnea with Activity, Cough with Secretions - Secretions Normal Color:: no cough Hx of Sleep Apnea: No Do you snore loudly (louder than talking or can be heard through closed doors)?: No Do you often feel tired/ fatigued/ sleepy during daytime?: Yes Has anyone observed you stop breathing during sleep?: No History of Hypertension (for STOP score): No STOP Results: Negative Home Medications: Home Medications calcium carbonate 600 mg-vitamin D3 12.5 mcg (500 unit) capsule (Calcium 600 with Vitamin D3) cap PO 04/02/20 cholecalciferol (vitamin D3) 50 mcg (2,000 unit) capsule 50 mcg PO DAILY 04/02/20 loratadine 10 mg capsule 10 mg PO DAILY 04/02/20 zinc acetate 50 mg (zinc) capsule (Galzin) 50 mg PO DAILY 04/02/20 elderberry fruit 200 mg capsule mg PO 04/17/21 latanoprost 0.005 % eye drops 1 drp ophthalmic (eye) DAILY 04/17/21 tumeric 100 mg-josse 150 mg-olive 50 mg-oreg 150 mg-caprylate capsule 1 cap PO QDAY 04/17/21 mometasone 0.1 % topical ointment 1 applic topical QDAY #2 tubes 04/08/22 amlodipine 2.5 mg tablet 5 mg PO DAILY raynauds 07/29/22 cyanocobalamin (vitamin B-12) 1,000 mcg capsule 1,000 mcg PO DAILY 07/29/22 krill oil 500 mg capsule 500 mg PO DAILY 07/29/22 clobetasol 0.05 % topical ointment 1 applic topical .COMPLEX #15 grams 08/25/22 Allergies/Adverse Reactions: Allergies No Known Allergies Allergy (Verified 09/23/22 07:38) Medical Utilization Do you use a peak flow meter at home?: No Do you use a spacer device with your inhalers?: No Number of hospital visits in the last year?: 0 Number of emergency room visits in the last year?: 1 - pneumonia but was not admitted Do you see your physician on a regular schedule?: Yes How often?: PCP annually, Pulmonary 3 months Advanced Directives - Advanced Directives Power of Animal Cruelty Investigation Supervisor: Yes Living Will: Yes Advance Directives Information Provided: No Advance Directives on File: Yes Past Medical History - Covid-19 Screening Fever: No Unexplained muscle aches: No Current respiratory symptoms: Yes - History of pulmonary fibrosis Upper respiratory infections symptoms: No Gastro-intestinal symptoms: No Jgg-Qacj-Ljwmmq symptoms: No Has tested positive for COVID-19 in last 30 days: No Date of testin10/01/22 - Fully vaccinated with one booster Had contact w/person w/symptoms or Covid-19 (+) last 14 days: No Has High Risk Exposures ID'd by Health dept/Inf Control team: No 65 years or older:: Yes Lives in Assisted Living facility:: No Has a chronic lung disease or moderate to severe asthma:: Yes Has a serious heart condition:: No Immunocompromised:: Yes Severely obese (Body Mass Index of 40 or higher):: No Diabetic:: No Has chronic kidney disease undergoing dialysis:: No Has liver disease:: No Medical History: Past Medical History (Last Reviewed 09/23/22 @ 08:[address] Dequan Hagan MD) Acute bronchitis, unspecified J20.9 Breast lump N63.0 Contact with and (suspected) exposure to other viral communicable diseases Z20.828 History of osteoarthritis Z87.39 History of pneumonia Z87.01 unusual fatigue Surgical History: Past Surgical History (Last Reviewed 09/23/22 @ 08:[address] Dequan Hagan MD) History of colonoscopy Onset Date: ~2018 Z98.890 - Current/ Previous Services Pulmonary Rehab:: No Social History - Smoking History Smoking Status: Never smoker Hx Tobacco Use: No Hx Smoking Exposure: No - Alcohol Use Alcohol Usage: No - Substance Abuse Hx Substance Use: No - Occupation Occupation (List type of work in comments):: Retired - Hobbies, Recreation, Social Activities Hobbies: Reading, Watch TV, Other - grandchildren Recreational Activities: I am able to engage in all my recreational activities - occasionally may have to rest, but can do them all. Functioning ADL/IADL - Current Ability Current Ability: Independent Self-Care (e.g.,grooming, dressing, & bathing), Independent Ambulation, Independent Transfer, Independent Household tasks (e.g., light meal prep, laundry, shopping) - Pt Functioning Prior to Problem Prior Functioning: Self-Care (e.g.,grooming, dressing, & bathing): Independent, Ambulation: Independent, Transfer: Independent, Household tasks (e.g., light meal prep, laundry, shopping): Independent Social Environment - Status Marital Status: - Current Living Arrangements Living Environment:: Alone - Children How many children do you have?: 2 - son/daughter 5 grandchildren, one great grandchild Do any of your children live nearby?: Yes - Safety Do you feel safe in your surroundings?: Yes - Assistance Do you need any assistance at home?: none Review of Systems Review of Systems: Right click = Denies (Slash). Left click = Reports (Purcell) Respiratory: Reports: Appetite, Normal, Fatigue, Sleep, Normal. Denies: Cough, SOB at Rest, SOB upon Exertion, Sputum production, Wheezing, Dizziness/Lightheadedness, Sexual changes Is Patient Pain Free?: No Pain Location: none Pain Level: 0/10 Risk Factor Assessment - Vital Signs Temperature: 98.6 F Pulse Rate: 89 Pulse Rhythm: Regular Respiratory Rate: 18 Pulse Ox: 98 Blood Pressure: 133/72 - Diabetes Nutrition Referral for Diabetes: No - Obesity Height: 5 ft 4 in Weight:: 125 lb Weight in Pounds: 125.0 lbs Weight Source: Estimated by Patient Body Mass Index (BMI): 21.4 Nutritional Referral for Obesity: No - Physical Activity Physical Inactivity: None - Physically active at home however does not do any regular type of exercise. - Risk Stratification Risk Guidelines: Lowest Risk: Risk Factor for Smoking, Risk Factor for Dyslipidemia, Risk Factor for Diabetes, Risk Factor for Obesity, Risk Factor for Depression, Moderate Risk: Risk Factor for Hypertension - 133/76, Risk Factor for Sedentary Lifestyle Motivation - Motivation to Participate On a scale of 1 to 10, how prepared are you to commit to attending program?: 10 What do you see as barriers to successfully being able to complete the program?: none What do you see as the benefits of succesfully completing the program? In other words, what do you hope to get out of participating in the program?: Want to feel better, better understand what is going on Are there issues you are dealing with that will interfere with completing the program?: no Do you have a spouse or signficant other, family or friends who will help support you to complete the program?: Yes
[2022-10-01 13:30] VITALS: BP 133/72; PULSE 89; RESP 18; TEMP 37; O2SAT 98; BMI 21.4
[2022-10-01 13:41] VITALS: BP 133/72; BMI 21.4
== END | disposition home or self-care (01) ==
LOC: PR 12:56
PROVIDERS: PCP Student in an Organized Health Care Education/Training Program; Visit Provider Internal Medicine Critical Care Medicine
DX: Z00.00 Encounter for general adult medical examination without abnormal findings (principal)

== ENCOUNTER 2022-10-11 10:30 | Outpatient (RCR) | payer MEDICARE, SELFPAY | END 2022-10-12 23:59 | LOC: PR 10:30 | PROVIDERS: PCP Student in an Organized Health Care Education/Training Program; Referring Provider Internal Medicine Critical Care Medicine; Visit Provider Internal Medicine Critical Care Medicine | DX: I73.00 Raynaud's syndrome without gangrene (principal); J84.10 Pulmonary fibrosis, unspecified | CPT/HCPCS: 94667; 97150; G0239 ==

== ENCOUNTER 2022-11-12 10:30 | Outpatient (RCR) | payer MEDICARE, SELFPAY ==
--- NOTE | 2022-10-29 11:47 | PCM.PR.TP ---
Exercise - 30-Day Assessment - Visit Date of Eval: 10/29/22 Session Number:: 11 - Physician Prescribed Exercise Modalities: Treadmill, NuStep, SciFit Intensity: 60-80% of age predicted maximum heart rate reserve Aerobic Exercise [30-60 min 3-7x/week]:: Progressing Current METSs:: 3.7 Target RPE 12-16:: 12-13 Maximum Exercise HR:: 100 Resting Blood Pressure: 124/58 Maximum Exercise Blood Pressure: 138/58 EKG Type: SR Current Minutes of Exercise: 30-45 Nutrition/Wt Mgmt - 30-Day - Visit Date of Eval: 10/29/22 Session Number:: 11 - Weight Management Height: 5 ft 4 in Weight:: 58.06 kg BMI: 21.9 Weight Goals Progress:: Goal met Psychosocial - 30-Day - Visit Date of Eval: 10/29/22 Session Number:: 11 Oxygen & Oxygen Titration 30D - Visit Date of Eval: 10/29/22 Session Number:: 11 Core Components - Initial Core Components - 30 DAYS - Visit Date of Eval: 10/29/22 Session Number:: 11 - Hypertension Hypertension Diagnosis:: Hypertension ICD-10 I10 Resting Blood Pressure:: 124/58 [place] [employer] Hypertension Guidelines: [place] [employer] Hypertension Guidelines. Normal BP Less than 120/80. Elevated BP 120/80. Hypertension Stage 1: BP 130-139/80-89. Hypertesnion Stage 2: BP 140 or higher/90 or higher. Hypertension Crisis: BP higher than 180/120 Peak Exercise Blood Pressure:: 138/58 Change in medication: No Outcomes/Goals: Able to verbalize/achieve optimal blood pressure <130/80, Incorporates diet changes & exercise for blood pressure control by DC, Other additional outcomes/goals Interventions/plan: Instruct on optimal blood pressure, hypertension & medications, Instruct on effects of sodium, alcohol, stress, exercise &hypertension, Other additional plan/interventions 30 day Reassessments:: Progressing - encouraged to take meds - Tobacco - 30-Day Tobacco Program Goals: Complete smoking cessation. Attend education classes. Improve Knowledge Test score Stages of Change:: Action Learning Barriers: Participates in education Do you have family support?: Yes Tobacco Use: Non-smoker - Diabetes Diabetes:: No Core Components - 60 DAYS Core Components - 90 DAYS Core Components - Final Patient Health Questionnaire 30-Day Re-eval Assessment 1. Little interest or pleasure in doing things: Not at all 2. Feeling down, depressed, or hopeless: Several days 3. Trouble falling or staying asleep, or sleeping too much: Not at all 4. Feeling tired or having little energy: Nearly every day 5. Poor appetite or overeating: Not at all 6. Feeling bad about yourself -- or that you are a failure or have let yourself or your family down: Not at all 7. Trouble concentrating on things, such as reading the newspaper or watching television: Not at all 8. Moving or speaking so slowly that other people could have noticed. Or the opposite - being so fidgety or restless that you have been moving around a lot more than usual: Not at all 9. Thoughts that you would be better off , or of hurting yourself in some way: Not at all How difficult have these problems made it for you to do your work, take care of things at home, or get along with other people?: Somewhat difficult Total Score: 4 Knowledge Questionaire (BCKQ) - Information Information: [place] COPD Knowledge Questionnaire (BCKQ) This questionnaire is designed to find out what you know about your lung problem. It should be completed without help form anyone else. This usually takes between 10 and 20 minutes. Your answers will help us to find out what information you need to help you to understand and manage your lung condition. [place]ilipp[place] the [place] which you think is the correct answer. Self-Efficacy 30-Day Re-eval Assessment We would like to know how confident you are in doing certain activities. Please select your confidence level for:: Select your confidence level for the following using the scale 1-10 where 1 is not at all confident and 10 is totally confident. Your score is the average of all 6 responses. Fatigue: How confident are you that you can keep the fatigue caused by your disease from interfering with the things you want to do? Select Number: 8 Physical Discomfort or Pain: How confident are you that you can keep the physical discomfort or pain of your disease from interfering with the things you want to do? Select Number: 8 Emotional Distress: How confident are you that you can keep the emotional distress caused by your disease from interfering with the things you want to do? Select Number: 8 Other Symptoms or Health Problems: How confident are you that you can keep other symptoms or health problems from interfering with the things you want to do? Select Number: 8 Different Tasks and Activities: How confident are you that you can do the different tasks and activities needed to manage your health condition so as to reduce your need to see a doctor? Select Number: 8 Medication: How confident are you that you can do things other than just taking medication to reduce how much your illness affects your everyday life? Select Number: 8 Total Score:: 8 Nutrition Survey
[2022-10-29 11:56] VITALS: BP 124/58; BP 138/58; BMI 21.9
== END 2022-11-12 23:59 ==
LOC: PR 10:30
PROVIDERS: PCP Student in an Organized Health Care Education/Training Program; Referring Provider Internal Medicine Critical Care Medicine; Visit Provider Internal Medicine Critical Care Medicine
DX: I73.00 Raynaud's syndrome without gangrene (principal); J84.10 Pulmonary fibrosis, unspecified
CPT/HCPCS: 97150; G0239

== ENCOUNTER 2022-11-26 09:05 | Outpatient (CLI) | payer MEDICARE, SELFPAY ==
[2022-10-29 11:56] VITALS: BMI 21.9
--- NOTE | 2022-11-26 15:56 | PFTCOMP ---
COMPLETE PULMONARY FUNCTION TEST INTERPRETATION Brief HPI: Patient is a 77 -year-old female, currently under the care of myself, who presents to [facility] for complete pulmonary function tests secondary to diagnosis of pulmonary fibrosis. Respiratory therapist reports good effort and reproducible results. Interpretation: Forced expiration spirometry shows no large airways obstructive ventilatory defect with an FEV1 of 82% predicted. There is no significant bronchodilator response by strict ATS criteria. Spirograms are of good quality and plateau normally. The respiratory flow volume loop shows a normal pattern. Lung volumes by body plethysmography show a mildly decreased total lung capacity at 3.99 L, 84% predicted. All other lung volumes are within normal limits. Diffusion capacity by carbon monoxide is at the lower limit of normal at 56% predicted. The airway resistance is normal. Compared to previous pulmonary function tests from 07/21/2022, there has been a significant improvement in lung volumes by 37%. Impression: Irreversible mild large airways obstructive ventilatory defect with a disproportionate reduction in diffusion capacity, but significant improvement compared to previous testing
== END 2022-11-26 23:59 | disposition home or self-care (01) ==
LOC: PSN 09:07
PROVIDERS: PCP Student in an Organized Health Care Education/Training Program; Referring Provider Internal Medicine Critical Care Medicine; Visit Provider Internal Medicine Critical Care Medicine
DX: I73.00 Raynaud's syndrome without gangrene (principal); J84.10 Pulmonary fibrosis, unspecified
CPT/HCPCS: 94060; 94726; 94729; 97150; G0239

== ENCOUNTER 2022-12-10 10:30 | Outpatient (RCR) | payer MEDICARE, SELFPAY ==
[2022-10-29 11:56] VITALS: BMI 21.9
[2022-11-13 02:06] VITALS: BP 124/58; BP 138/58
--- NOTE | 2022-11-29 07:04 | PR.OPITP_ITS ---
Exercise - 60-Day Assessment - Visit Date of Eval: 11/29/22 Session Number:: 23 - Physician Prescribed Exercise Modalities: Treadmill, Biodyne - Schwinn Airdyne Cycle, NuStep Intensity: 60-80% of age predicted maximum heart rate reserve Aerobic Exercise [30-60 min 3-7x/week]:: Progressing Shauna-13 Current METSs: 5.5 Target HR:: 106 - THRR 92-106 Current RPD:: 12-13 Maximum Exercise HR:: 113 Resting Blood Pressure: 104/60 Maximum Exercise Blood Pressure: 142/70 Minimum SpO2 with exercise: 91 EKG Type: Sinus rhythm to sinus tach with PVCs and occasional PAC noted. Current Minutes of Exercise: 54 - Home Exercise Home Exercise:: Yes Mode: Walking Nutrition/Wt Mgmt - 60-Day - Visit Date of Eval: 11/29/22 Session Number:: 23 - Weight Management Height: 5 ft 4 in Weight:: 127 lb BMI: 21.8 Weight Goals Progress:: Goal met Psychosocial - 60-Day - Visit Date of Eval: 11/29/22 Session Number:: 23 - Problems/Goals History of Emotional Disorders: None - Psychosocial Test Tool Used:: PHQ-9 Questionnaire - Referral to Behavioral Health PS - Interventions: Yes Attend Stress Management Classes, No Referral to Behavioral Health if PHQ-9 score >9:, No Referral to [facility], No Referral to Physician if PHQ-9 if score is 5-9: - Plan Interventions/Plan:: Assess stressors,coping strategies & signs of derpression on admission, Instruct/assist pt to develop coping & personal stress Mgt strategies, Instruct patient to recognize signs & symptoms of depression, Instruct patient to recog Oxygen & Oxygen Titration 60D - Visit Date of Eval: 11/29/22 Session Number:: 23 - Reassessment Reassessment- 60 Days: Demonstrate knowledge of O2 Rx at rest & w/exercise Breath Sounds:: Clear, Diminished SpO2:: 96 - on Room air at rest. Core Components - Initial Core Components - 30 DAYS Core Components - 60 DAYS - Visit Date of Eval: 11/29/22 Session Number:: 23 - Hypertension Hypertension Diagnosis:: Hypertension ICD-10 I10 Resting Blood Pressure:: 104/60 [place] [employer] Hypertension Guidelines: [place] [employer] Hypertension Guidelines. Normal BP Less than 120/80. Elevated BP 120/80. Hypertension Stage 1: BP 130-139/80-89. Hypertesnion Stage 2: BP 140 or higher/90 or higher. Hypertension Crisis: BP higher than 180/120 Peak Exercise Blood Pressure:: 142/70 Change in medication: Yes Outcomes/Goals: Able to verbalize/achieve optimal blood pressure <130/80, Incorporates diet changes & exercise for blood pressure control by DC Interventions/plan: Instruct on optimal blood pressure, hypertension & medications 60 day Reassessments:: Met - Exacerbation Mgmt & Airway Clearance Reassessment: Demonstrates knowledge of O2 Rx at rest, Demonstrates knowledge of O2 Rx with exercise - Medication Medication list reviewed:: Yes Taking medications 100% of the time:: Met Taking medications 100% of the time:: Met - Diabetes Diabetes:: No Core Components - 90 DAYS Core Components - Final Patient Health Questionnaire 60-Day Re-eval Assessment 1. Little interest or pleasure in doing things: Not at all 2. Feeling down, depressed, or hopeless: Not at all 3. Trouble falling or staying asleep, or sleeping too much: Not at all 4. Feeling tired or having little energy: Several days 5. Poor appetite or overeating: Not at all 6. Feeling bad about yourself -- or that you are a failure or have let yourself or your family down: Not at all 7. Trouble concentrating on things, such as reading the newspaper or watching television: Not at all 8. Moving or speaking so slowly that other people could have noticed. Or the opposite - being so fidgety or restless that you have been moving around a lot more than usual: Not at all 9. Thoughts that you would be better off , or of hurting yourself in some way: Not at all How difficult have these problems made it for you to do your work, take care of things at home, or get along with other people?: Not difficult at all Total Score: 1 Knowledge Questionaire (BCKQ) - Information Information: [place] COPD Knowledge Questionnaire (BCKQ) This questionnaire is designed to find out what you know about your lung problem. It should be completed without help form anyone else. This usually takes between 10 and 20 minutes. Your answers will help us to find out what information you need to help you to understand and manage your lung condition. [place] which you think is the correct answer. Self-Efficacy 60-Day Re-eval Assessment We would like to know how confident you are in doing certain activities. Please select your confidence level for:: Select your confidence level for the following using the scale 1-10 where 1 is not at all confident and 10 is totally confident. Your score is the average of all 6 responses. Fatigue: How confident are you that you can keep the fatigue caused by your disease from interfering with the things you want to do? Select Number: 9 Physical Discomfort or Pain: How confident are you that you can keep the p hysical discomfort or pain of your disease from interfering with the things you want to do? Select Number: 9 Emotional Distress: How confident are you that you can keep the emotional distress caused by your disease from interfering with the things you want to do? Select Number: 10 Other Symptoms or Health Problems: How confident are you that you can keep other symptoms or health problems from interfering with the things you want to do? Select Number: 10 Different Tasks and Activities: How confident are you that you can do the different tasks and activities needed to manage your health condition so as to reduce your need to see a doctor? Select Number: 10 Medication: How confident are you that you can do things other than just taking medication to reduce how much your illness affects your everyday life? Select Number: 10 Total Score:: 9 Nutrition Survey
[2022-11-29 07:15] VITALS: BP 104/60; BP 142/70; O2SAT 96; BMI 21.8
== END 2022-12-12 23:59 ==
LOC: PR 10:30
PROVIDERS: PCP Student in an Organized Health Care Education/Training Program; Referring Provider Internal Medicine Critical Care Medicine; Visit Provider Internal Medicine Critical Care Medicine
DX: I73.00 Raynaud's syndrome without gangrene (principal); J84.10 Pulmonary fibrosis, unspecified
CPT/HCPCS: 97150; G0239

== ENCOUNTER 2022-12-27 10:15 | Outpatient (RCR) | payer MEDICARE, SELFPAY ==
[2022-11-29 07:15] VITALS: BMI 21.8
[2022-12-13 00:41] VITALS: BP 104/60; BP 142/70
== END 2023-01-12 23:59 ==
LOC: PR 10:15
PROVIDERS: PCP Student in an Organized Health Care Education/Training Program; Referring Provider Internal Medicine Critical Care Medicine; Visit Provider Internal Medicine Critical Care Medicine
DX: I73.00 Raynaud's syndrome without gangrene (principal); J84.10 Pulmonary fibrosis, unspecified
CPT/HCPCS: 97150; G0239

== ENCOUNTER → 2023-03-17 | Outpatient (CLI) | payer MEDICARE, SELFPAY ==
[2022-11-29 07:15] VITALS: BMI 21.8
[2023-03-17 14:17] LABS: Anion Gap 4 (5-15); BUN 20 mg/dL (7-18); Calcium,Total 8.6 mg/dL (8.5-10.1); Chloride 105 mmol/L (98-107); Creatinine, Serum 0.91 mg/dL (0.55-1.02); EST Glomerular Filtration Rate 64 mL/min (>60); Est Glom Filt Rate - Afr Amer 77 mL/min (>60); Glucose 110 mg/dL (74-106); Potassium 4.1 mmol/L (3.5-5.1); Sodium Level 137 mmol/L (136-145)
[2023-03-17 14:44] LABS: Color, Urine Yellow (Yellow); Glucose, Dipstick Normal (Normal); Ketone-Dipstick Negative (Negative); Leukocyte Esterase-Dipstick 100 /ul (Negative); Nitrite-Dipstick Negative (Negative); Occult Blood-Urine Negative /ul (Negative); Protein-Dipstick Negative (Negative); Urine Bilirubin Dipstick Negative (Negative); Urine Clarity Sl. Cloudy (Clear); Urine Urobilinogen Normal (Normal)
[2023-03-17 14:53] LABS: Protein, Urine (Random) 6.4 mg/dL (<11.9); Protein:Creat Ratio 131 mg/g CRE (0-200)
== END | disposition home or self-care (01) ==
PROVIDERS: PCP Student in an Organized Health Care Education/Training Program; Referring Provider Internal Medicine Nephrology; Visit Provider Internal Medicine Nephrology
DX: N18.2 Chronic kidney disease, stage 2 (mild) (principal)
CPT/HCPCS: 36415; 80048; 81002; 82570; 84156

== ENCOUNTER → 2023-04-14 | Outpatient (CLI) | payer MEDICARE, SELFPAY ==
[2022-11-29 07:15] VITALS: BMI 21.8
--- NOTE | 2023-04-14 09:56 | BI_ITS ---
MAMMOGRAPHY - BILATERAL SCREENING REASON FOR EXAM: Female, 77 years old. Routine annual screening examination. PERTINENT HISTORY: Aunt with breast cancer. TECHNIQUE: Digital bilateral breast fátima (3D mammographic acquisition) in the CC and MLO projections. 2-D mediolateral oblique (MLO) and craniocaudad (CC) views of both breasts were obtained. CAD: Full Field Digital Mammography with Computer Added Detection was performed. COMPARISON: Comparison is made with prior study dated April 12, 2022. FINDINGS: Breast Composition: The breasts are heterogeneously dense, which may obscure small masses. There are no dominant masses or suspicious calcifications. Stable asymmetry of breast tissue where more breast tissue is seen in the upper central portion of the right breast as compared to the left side. No other significant abnormalities are identified. There has been no significant change since the prior study. BI/SCRN MAMM (CAD)W/FÁTIMA BILAT IMPRESSION: Stable bilateral screening mammogram. Yearly follow-up mammogram recommended. (A) ASSESSMENT CATEGORY: BIRADS Category 2: Benign. A letter regarding these results will be sent to the patient by the facility within 30 days. Approximately 10% of breast cancers are not detected by mammography. A normal mammogram should not delay biopsy of a clinically suspicious abnormality. [id number] Electronically Signed: Colt Montoya MD at 11:09 EDT ,
== END | disposition home or self-care (01) ==
LOC: OPBI 09:55
PROVIDERS: PCP Student in an Organized Health Care Education/Training Program; Referring Provider Physician Assistant; Visit Provider Physician Assistant
DX: Z12.31 Encounter for screening mammogram for malignant neoplasm of breast (principal)
CPT/HCPCS: 77063; 77067

== ENCOUNTER 2023-05-16 20:04 | Emergency (ER) | payer MEDICARE, SELFPAY ==
[2022-11-29 07:15] VITALS: BMI 21.8
[2023-05-16 20:05] VITALS: BP 155/85; PULSE 82; RESP 16; TEMP 36.4; O2SAT 100; BMI 22.4
--- NOTE | 2023-05-16 20:37 | EKG12_ITS ---
Test Reason : ALT LOC Blood Pressure : / mmHG Vent. Rate : 067 BPM Atrial Rate : 067 BPM P-R Int : 250 ms QRS Dur : 072 ms QT Int : 430 ms P-R-T Axes : 056 054 057 degrees QTc Int : 454 ms Sinus rhythm with 1st degree A-V block Otherwise normal ECG Confirmed by KAMRYN MCCALL, DURAN ([id number]), editor continuity and script ASIF MADRID ([id number]) on 05/20/2023 2:26:38 PM Referred By: Confirmed By:DURAN HARRY MD
--- NOTE | 2023-05-16 20:37 | CT_ITS ---
INDICATION: Confusion EXAMINATION: CT BRAIN - CT Head or Brain W/O Contrast Injection TECHNIQUE: Multiple axial images were obtained of the head with sagittal and coronal reconstructed images. Individualized dose optimization techniques were used for this CT. IV contrast dosage and agent: None. COMPARISON: 03/27/2018 CT and MRI. FINDINGS: BRAIN PARENCHYMA: No evidence of an acute infarct or intracranial hemorrhage. No evidence of a mass. White matter changes consistent with moderate chronic microvascular disease. Chronic left basal ganglia lacunar infarct. CSF SPACES: The ventricles, sulci and subarachnoid cisterns are appropriate for age. CALVARIUM, SKULL BASE, PARANASAL SINUSES AND MASTOID AIR CELLS: No fracture. Mastoid air cells are clear. Visualized paranasal sinuses are unremarkable. ORBITS: The globes, extraocular muscles, optic nerves and retrobulbar fat are unremarkable. CT/Brain/Head without Contrast IMPRESSION: No acute intracranial abnormality. Electronically Signed: Rc Ramos DO at 22:24 EDT ,
--- NOTE | 2023-05-16 20:40 | EX.ED.DYSGE1 ---
HPI History of Present Illness Chief Complaint: Alt LOC Informant: patient and family Onset/Context/Timing Onset: Today Context: Sudden Onset Timing: Continuous Quality: Dull Location: Sacrum Worsened by: Nothing Relieved by: Nothing Narrative Narrative: Patient presents after a fall that occurred tonight. Patient states that she was out with her dogs and one of the dogs hit her and caused her to fall. Patient denies any head injury or loss of consciousness. Patient has some amnesia of the events around the fall. Family was there and witnessed the fall. Family states patient did not lose consciousness. Family does not think the patient hit her head. Patient complains of pain over her tailbone. Patient denies any chest pain or shortness of breath. Patient denies any nausea or vomiting. Patient denies any visual changes. [facility] Medical History Acute bronchitis, unspecified Breast lump Contact with and (suspected) exposure to other viral communicable diseases History of osteoarthritis History of pneumonia unusual fatigue Home Medications calcium carbonate 600 mg-vitamin D3 12.5 mcg (500 unit) capsule (Calcium 600 with Vitamin D3) cap PO 04/02/20 [History Last Taken Unknown] cholecalciferol (vitamin D3) 50 mcg (2,000 unit) capsule 50 mcg PO DAILY 04/02/20 [History Last Taken Unknown] loratadine 10 mg capsule 10 mg PO DAILY 04/02/20 [History Last Taken Unknown] zinc acetate 50 mg (zinc) capsule (Galzin) 50 mg PO DAILY 04/02/20 [History Last Taken Unknown] elderberry fruit 200 mg capsule mg PO 04/17/21 [History Last Taken Unknown] latanoprost 0.005 % eye drops 1 drp ophthalmic (eye) DAILY 04/17/21 [History Last Taken Unknown] tumeric 100 mg-josse 150 mg-olive 50 mg-oreg 150 mg-caprylate capsule 1 cap PO QDAY 04/17/21 [History Last Taken Unknown] mometasone 0.1 % topical ointment 1 applic topical QDAY #2 tubes 04/08/22 [Rx Last Taken Unknown] amlodipine 2.5 mg tablet 5 mg PO DAILY raynauds 07/29/22 [History Last Taken Unknown] cyanocobalamin (vitamin B-12) 1,000 mcg capsule 1,000 mcg PO DAILY 07/29/22 [History Last Taken Unknown] krill oil 500 mg capsule 500 mg PO DAILY 07/29/22 [History Last Taken Unknown] clobetasol 0.05 % topical ointment 1 applic topical .COMPLEX #15 grams 12/16/22 [Rx Last Taken Unknown] omeprazole 40 mg capsule,delayed release 40 mg PO DAILY #30 caps 03/10/23 [Rx Last Taken Unknown] Allergy/AdvReac Type Severity Reaction Status Date / Time No Known Allergies Allergy Verified 05/16/23 20:05 Surgical History History of colonoscopy (~2019) Social History household members: spouse current occupational status: retired history of recent travel: No Smoking Status: Never smoker alcohol intake: never substance use type: does not use what type of physical activity do you participate in: walking frequency: 5-6 times per week seatbelt use: always do you feel safe at home: Yes additional social history: ROS ROS ED Constitutional Constitutional ED: Denies chills or fever(s) Eyes Eyes: Denies blurry vision or change in vision ENT ENT ED: Denies rhinorrhea or sore throat Cardiovascular Cardiovascular: Denies chest pain or palpitations Respiratory/Chest Respiratory/Chest: Denies cough or dyspnea Gastrointestinal Gastrointestinal: Denies nausea or vomiting Genitourinary Genitourinary ED: Denies dysuria or hematuria Musculoskeletal Musculoskeletal: Denies back pain or neck pain Integumentary Denies abscess or rash Neurologic Neurologic: Denies headache(s) or weakness Allergic/Immunologic Allergic/Immunologic ED: Denies mouth swelling or urticaria EXAM Physical Exam Const Vital Signs: 05/16/23 20:05 Temperature 97.6 F L Temperature Source Temporal Pulse Rate 82 Respiratory Rate 16 Blood Pressure 155/85 H Blood Pressure Mean 108 Pulse Ox 100 Positive well nourished and well developed General Appearance ED: well developed and NAD HEENT Reports moist mucous membranes Neck supple and no JVD Resp normal respiratory effort and clear to auscultation bilaterally Cardio regular rate and regular rhythm GI non-tender and non-distended Palpation: soft Back/Spine Back/Spine Narrative: There is mild tenderness over the sacrum. There is no bony crepitance or step-off noted. Extremity normal to inspection General Extremety ED: Negative for edema or tenderness General Extremity: Negative for edema Neuro oriented x3, CN's II-XII intact bilaterally and no sensory deficits noted Sensorium / Orientation: alert Motor Exam: strength 5/5 throughout Psych mental status grossly normal Skin no rashes or lesions noted MDM MDM MDM Narrative Medical decision making narrative: Differential diagnosis includes concussion, urinary tract infection, stroke, electrolyte abnormality, intracranial bleeding, cardiac dysrhythmia, cardiac ischemia, and closed head injury. CT scan of the brain will be obtained to assess for intracranial bleeding. X-rays of the sacrum and coccyx will be obtained to assess for fracture. CBC will be obtained to assess for leukocytosis and anemia. Basic metabolic profile will be obtained to assess for electrolyte abnormality and renal function. Urinalysis will be obtained to assess for urinary tract infection. PT with INR and PTT will be obtained to assess for coagulopathy. EKG will be obtained to assess for cardiac dysrhythmia and cardiac ischemia. Lab Data Lab results narrative: CBC was reviewed and was within normal limits. PT with INR and PTT were reviewed and were within normal limits. Basic metabolic profile was reviewed and was essentially within normal limits. Urinalysis was reviewed. There is no evidence of urinary tract infection or hematuria. Radiography Diagnostic Testing: X-rays of the sacrum and coccyx were obtained. There are 4 views. On my independent interpretation no acute fracture or dislocation. There is no soft tissue swelling. Radiologist also interpreted the x-rays and agrees. CT scan of the brain was obtained. There is no acute intracranial abnormality. This was interpreted by the radiologist and was also independently reviewed by myself. EKG Initial EKG: Attestation: I personally reviewed and interpreted this EKG as follows: Interpretation: Sinus Rhythm (With first-degree AV block with a rate of 67) and No Acute Injury Pattern Comments: EKG was obtained. On my independent interpretation, it showed a normal sinus rhythm with a first-degree AV block with a rate of 67. [place] interval was prolonged at 250 ms. QRS interval was normal at 72 ms. QTc interval was normal at 454 ms. [place] was normal. There are no acute ST or T wave changes. Prior EKG tracings: available for review Prior: Unchanged (03/27/2018) Treatment and Re-Evaluation :: Patient was advised of her findings. Patient is feeling better on reevaluation. Patient was instructed to drink plenty of fluids. Patient was instructed to follow-up with her primary care physician in 5 to 7 days. Patient understood and was agreeable with the plan. All questions were answered. Discharge Plan Triage Chief Complaint: Alt LOC ED Provider: Jose Guadalupe Wolff Dx/Rx/DC Orders Clinical Impression: Concussion, Contusion of sacrum Instructions: ED Concussion, ED Coccyx or Sacrum Contusion Prescriptions: No Action amlodipine 2.5 mg tablet 5 mg PO DAILY cholecalciferol (vitamin D3) 50 mcg (2,000 unit) capsule 50 mcg PO DAILY loratadine 10 mg capsule 10 mg PO DAILY zinc acetate 50 mg (zinc) capsule 50 mg (zinc) capsule 50 mg PO DAILY Rx Instructions: swallow whole; do not chew/break/dissolve/open calcium carbonate-vitamin D3 [Calcium 600 with Vitamin D3] 600 mg(1,500mg) -500 unit capsule PO mometasone 0.1 % ointment 1 applic TOPICAL QDAY Qty: 2 4RF brddnoj-gqnc-qziec-oreg-capryl 100 mg-150 mg- 50 mg-150 mg capsule 1 cap PO QDAY latanoprost 0.005 % drops 1 drp ophthalmic (eye) DAILY elderberry fruit 200 mg capsule PO cyanocobalamin (vitamin B-12) 1,000 mcg capsule 1,000 mcg PO DAILY krill oil 500 mg capsule 500 mg PO DAILY omeprazole 40 mg capsule,delayed release(DR/EC) 40 mg PO DAILY Qty: 30 5RF clobetasol 0.05 % ointment 1 applic topical .COMPLEX Qty: 15 2RF Rx Instructions: 1 applic topical apply bid X 2 weeks, daily X 2 weeks then prn. Small amount and massge in; Primary Care Provider: Nicolás Ríos Referrals: Nicolás Ríos DO [Primary Care Provider] - 5-7 Days Disposition Disposition: Home, Self Care
--- NOTE | 2023-05-16 21:41 | RAD_ITS ---
INDICATION: Fall EXAMINATION/TECHNIQUE: X-RAY - XR Sacrum/Coccyx Min 2 Views COMPARISON: None. FINDINGS: SACRUM/COCCYX: No evidence of a fracture or subluxation. SACRO-ILIAC JOINTS: Unremarkable. SOFT TISSUES: Unremarkable. Large amount of stool retention. RAD/Sacrum-Coccyx min 2 Views IMPRESSION: No fracture. Electronically Signed: Rc Ramos DO at 22:26 EDT ,
[2023-05-16 21:47] LABS: Bacteria 0 SEEN /hpf (None Seen); Mucous, Urine 0 SEEN /hpf (<or=2+); Red Blood Cells-Urine 0 SEEN /hpf (0-5)
[2023-05-16 21:49] LABS: Absolute Lymphocyte Count 2.59 X10^3/uL (0.83-4.51); Absolute Neutrophil Count 4.1 X10^3/uL (2.0-7.7); Basophil# 0.03 X10^3/uL; Basophil% 0.4 % (0-1); Eosinophil# 0.15 X10^3/uL; Hematocrit 41.7 % (37-47); Hemoglobin 13.1 g/dL (12.0-15.0); Lymphocyte # 2.59 X10^3/ul (0.83-4.51); Lymphocyte % 34.6 % (19-41); Mean Corp Hgb Conc 31.4 g/dL (32-36); Mean Corpuscular Hgb 29.5 pg (27.0-32.0); Mean Corpuscular Volume 93.9 fL (81-99); Mean Platelet Vol. 9.9 fl (6.2-12.0); Monocyte# 0.59 X10^3/uL; Monocyte% 7.9 % (0-10); NRBC Flagged by Analyzer 0 % (0-5); Neutrophil # 4.09 X10^3/uL (2.7-7.7); Neutrophil % 54.7 % (47-70); Platelet Count 264 K/mm3 (150-450); RBC Distribution Width CV 13.2 % (11.6-14.6); RBC Distribution Width SD 45.2 fl (35.1-43.9); Red Blood Count 4.44 M/mm3 (4.2-5.4); White Blood Count 7.5 K/mm3 (4.4-11.0)
[2023-05-16 21:54] LABS: Color, Urine Yellow (Yellow); Glucose, Dipstick Normal (Normal); Ketone-Dipstick Negative (Negative); Leukocyte Esterase-Dipstick 25 /ul (Negative); Nitrite-Dipstick Negative (Negative); Occult Blood-Urine Negative /ul (Negative); Protein-Dipstick Negative (Negative); Specific Gravity, Urine 1.015 (1.002-1.030); Urine Bilirubin Dipstick Negative (Negative); Urine Clarity Clear (Clear); Urine Urobilinogen Normal (Normal)
[2023-05-16 22:03] LABS: Anion Gap 3 (5-15); BUN 24 mg/dL (7-18); BUN/Creat Ratio 24.8 RATIO (10-20); Calcium,Total 8.9 mg/dL (8.5-10.1); Chloride 107 mmol/L (98-107); Creatinine, Serum 0.97 mg/dL (0.55-1.02); EST Glomerular Filtration Rate 59 mL/min (>60); Est Glom Filt Rate - Afr Amer 71 mL/min (>60); Glucose 101 mg/dL (74-106); Potassium 3.6 mmol/L (3.5-5.1); Sodium Level 140 mmol/L (136-145)
[2023-05-16 22:08] LABS: Partial Thromboplast Time 28.4 Seconds (24.1-36.2)
[2023-05-16 22:18] LABS: Squamous Epithelial Cells - UA 0-5 SEEN /hpf (5-10); White Blood Cells 0-5 SEEN /hpf (0-5)
[2023-05-16 23:05] VITALS: BP 117/84; PULSE 72; RESP 16; O2SAT 98
== END 2023-05-16 23:08 | disposition home or self-care (01) ==
PROVIDERS: Emergency Provider Emergency Medicine; PCP Student in an Organized Health Care Education/Training Program; Visit Provider Emergency Medicine
DX: S06.0X0A Concussion without loss of consciousness, initial encounter (principal); S30.0XXA Contusion of lower back and pelvis, initial encounter; W19.XXXA Unspecified fall, initial encounter
CPT/HCPCS: 70450; 72220; 80048; 81001; 85025; 85610; 85730; 93005; 99285; A4216

== ENCOUNTER → 2023-06-13 | Outpatient (CLI) | payer MEDICARE, SELFPAY ==
[2022-11-29 07:15] VITALS: BMI 21.8
--- NOTE | 2023-06-14 09:14 | PFT ---
INTRODUCTION: The patient is a 77-year-old female who presents for pulmonary function studies secondary to a diagnosis of pulmonary fibrosis. Respiratory therapy reported good patient effort. Bronchodilators were used during testing. INTERPRETATION: Forced expiration spirometry demonstrates no evidence of a large airways obstructive ventilatory defect. There was no significant response to aerosolized bronchodilators. Body plethysmography was performed and revealed a decreased TLC to 2.73 L, 55% of predicted, indicative of a severe restrictive ventilatory impairment. Diffusing capacity by single breath CO is reduced to 43% of predicted. IMPRESSION: Severe restrictive ventilatory impairment with symmetric reduction in diffusing capacity.
== END | disposition home or self-care (01) ==
LOC: PSN 09:03
PROVIDERS: PCP Student in an Organized Health Care Education/Training Program; Referring Provider Nurse Practitioner Acute Care; Visit Provider Nurse Practitioner Acute Care
DX: J84.10 Pulmonary fibrosis, unspecified (principal)
CPT/HCPCS: 94060; 94726; 94729

== ENCOUNTER → 2023-06-22 | Outpatient (CLI) | payer MEDICARE, SELFPAY ==
[2022-11-29 07:15] VITALS: BMI 21.8
--- NOTE | 2023-06-22 07:18 | CT_ITS ---
INDICATION: restrictive ventilatory impairment EXAMINATION: CT CHEST WITHOUT CONTRAST - CT Chest W/O Contrast Injection TECHNIQUE: Helically acquired images were obtained of the chest. A radiation dose optimization technique was used for this scan. Sagittal coronal reformatted images are performed. IV Contrast dosage and agent: None. COMPARISON: June 09, 2022 chest x-ray March 27, 2018 CT angiogram with views of the apices. FINDINGS: LUNGS, PLEURA AND LARGE AIRWAYS: There is a pattern of peripheral interseptal thickening and areas of subtle pleural blebs within the right lower lobe, lingula and to lesser degree the left lung base. There is a small nodular density within the left upper lobe periphery measuring 3.1 mm. There is a focus of right apical interstitial thickening and/or scarring which is unchanged since March 27, 2018. The left apex is also stable when compared to prior study. No pleural effusion or thickening. No pneumothorax. There is a tortuous appearance of the trachea with deviation the level of the aorta. There is right greater than left bronchiectasis within the lower lobes and left greater than right bronchiectasis within the upper lobes. There is a small apical soft tissue density this measures approximately 6 mm. In the left lung that appears more linear on the coronal views and axial views. An inch 26 series 2. THYROID: No thyroid lesions. HEART AND PERICARDIUM: There is borderline cardiac enlargement. There are visualize coronary calcifications. No pericardial effusion. CORONARY ARTERIES: Coronary artery calcification is seen. VESSELS: The aorta is partially calcified. MEDIASTINUM AND JOE: There are nonspecific AP window lymph nodes. Esophagus is unremarkable. No hiatal hernia. UPPER ABDOMEN: There is a minimal hiatal hernia. BONES: There is degenerative change of the thoracolumbar spine. There is focal Schmorl''s node slight loss of height at the level of L1 which is chronic. CT/Chest without Contrast IMPRESSION: Findings is suspicious for idiopathic pulmonary fibrosis. There is subtle groundglass opacity within the right lower lobe which may be superimposed on interstitial fibrosis and/or potentially atelectasis. Superimposed pneumonia is not entirely excluded. Recommend short-term interval follow-up CT scan of the chest. Nonspecific left upper lobe peripheral pulmonary nodule recommend follow-up in 6-12 months to ensure stability or as clinically appropriate. Mild cardiac enlargement. Coronary artery calcification. Electronically Signed: Kailey Rose MD at 13:58 EST ,
== END | disposition home or self-care (01) ==
LOC: CT 07:18
PROVIDERS: PCP Student in an Organized Health Care Education/Training Program; Referring Provider Internal Medicine Critical Care Medicine; Visit Provider Internal Medicine Critical Care Medicine
DX: R94.2 Abnormal results of pulmonary function studies (principal)
CPT/HCPCS: 71250

== ENCOUNTER → 2023-11-28 | Outpatient (CLI) | payer MEDICARE, SELFPAY ==
[2022-11-29 07:15] VITALS: BMI 21.8
--- NOTE | 2023-11-28 13:03 | RAD_ITS ---
STUDY: X-RAY STERNUM REASON FOR EXAM: Female, 78 years old. OSTEOPENIA, SENILE/STERNAL PAIN TECHNIQUE: 3 view(s) of the sternum were obtained. COMPARISON: None. FINDINGS: Normal bilateral sternoclavicular articulations. There is demineralization of the manubrium. There is demineralization of the sternomanubrial joint. Normal sternal body and xiphoid process. There is no demonstrated fracture of the sternum. Normal visualized anterior ribs. Normal visualized lungs. The soft tissue structures are unremarkable. RAD/Sternum min 2 Views IMPRESSION: Demineralization. No fracture seen. Electronically Signed: Berny Churchill MD at 22:40 EDT ,
== END | disposition home or self-care (01) ==
PROVIDERS: PCP Student in an Organized Health Care Education/Training Program; Referring Provider Nurse Practitioner Family; Visit Provider Nurse Practitioner Family
DX: R07.89 Other chest pain (principal); M85.80 Other specified disorders of bone density and structure, unspecified site
CPT/HCPCS: 71120

== ENCOUNTER → 2023-12-13 | Outpatient (CLI) | payer MEDICARE, SELFPAY ==
[2022-11-29 07:15] VITALS: BMI 21.8
--- NOTE | 2023-12-13 13:30 | BD_ITS ---
STUDY: DUAL ENERGY X-RAY ABSORPTIOMETRY / DXA REASON FOR EXAM: Female, 78 years old. M85.89 TECHNIQUE: Bone Mineral Density (BMD) measurements of lumbar spine and bilateral hips were obtained. COMPARISON: None. FINDINGS: Lumbar Spine (L1-L4): g/cm2 (0.865) / T-score (-1.7) / Z-score (1.0) Findings are suggestive of osteopenia with a moderate fracture risk. Left Femur Total: g/cm2 (0.622) / T-score (-2.6) / Z-score (-0.6) Left Femoral Neck: g/cm2 (0.585) / T-score (-2.4) / Z-score (-0.1) Right Femur Total: g/cm2 (0.651) / T-score (-2.4) / Z-score (-0.3) Right Femoral Neck: g/cm2 (0.571) / T-score (-2.5) / Z-score (-0.2) BD/Dexa Bone Density Study IMPRESSION: The patient is considered osteoporotic as outlined below according to World Daniel Organization (WHO) criteria with a high fracture risk. Reference Information: The T-score is the number of standard deviations above or below the standard which is normal for young adults at their peak bone mineral density. The World Health Organization (WHO) interprets the T-scores as follows: Above -1 Normal bone density Between -1 and -2.5 Osteopenia Equal to / or below -2.5 Osteoporosis As a practical clinical guideline, osteopenia may be graded as follows: Mild -1 through -1.5 Moderate -1.6 through -2.0 Severe -2.1 through -2.4 The Z-score is the number of standard deviations above or below age-matched controls. A Z-score of less than -1.5 would be considered abnormal. References: 1. NIH Osteoporosis and Related Bone Diseases www osteo.org 2. International Society for Clinical Densitometry www iscd.org 3. National Osteoporosis Foundation www nof.org Electronically Signed: Colt Montoya MD at 15:34 EDT ,
== END | disposition home or self-care (01) ==
PROVIDERS: PCP Student in an Organized Health Care Education/Training Program; Referring Provider Nurse Practitioner Family; Visit Provider Nurse Practitioner Family
DX: M85.89 Other specified disorders of bone density and structure, multiple sites (principal); R07.89 Other chest pain
CPT/HCPCS: 77080

== ENCOUNTER → 2023-12-15 | Outpatient (CLI) | payer MEDICARE, SELFPAY ==
[2022-11-29 07:15] VITALS: BMI 21.8
== END | disposition home or self-care (01) ==
LOC: PSN 09:21
PROVIDERS: PCP Student in an Organized Health Care Education/Training Program; Referring Provider Internal Medicine Critical Care Medicine; Visit Provider Internal Medicine Critical Care Medicine
DX: R76.8 Other specified abnormal immunological findings in serum (principal); J84.10 Pulmonary fibrosis, unspecified
CPT/HCPCS: 94060; 94726; 94729

== ENCOUNTER → 2024-06-12 09:48 | Outpatient (CLI) | payer MEDICARE, SELFPAY ==
[2022-11-29 07:15] VITALS: BMI 21.8
--- NOTE | 2024-06-12 10:05 | PR.HP_ITS ---
History of Present Illness General Arrival date:: 06/12/24 Arrival time:: 10:05 Date of Referral:: 05/31/24 Date of Evaluation: 06/12/24 Referring Physician: Dr. Shoemaker Primary Diagnosis: ILD History of Present Pulmonary Event mMRC Breathless Scale: When is the patient short of breath? Y/N Grade: Description of Breathlessness: 0 I only get breathless with strenuous exercise. 1 I get short of breath when hurrying on level ground or walking up a slight hill. 2 On level ground, I walk slower than people of the same age because of breathless, or have to stop for breath when walking at my own pace. 3 I stop for breath after walking 100 yards or after a few minutes on level ground. 4 I am too breathless to leave the house or I am breathless when dressing. Respiratory Problems: Yes Fatigue, Wheezing, Able to Speak in Full Sentences and Dyspnea with Activity; No Retain Secretions, Limited Range of Motion, Chest Pain, Dizziness, Ankle Swelling, Hoarseness, Anxiety, Panic, Dyspnea at Rest, Dyspnea Lying Down Flat or Cough with Secretions Medications Home Medications calcium 600 mg (as carbonate)-vitamin D3 12.5 mcg (500 unit) capsule (Calcium with Vit D3) cap PO 04/02/20 cholecalciferol (vitamin D3) 50 mcg (2,000 unit) capsule 50 mcg PO DAILY 04/02/20 loratadine 10 mg capsule 10 mg PO DAILY 04/02/20 zinc acetate 50 mg (zinc) capsule (Galzin) 50 mg PO DAILY 04/02/20 elderberry fruit 200 mg capsule mg PO 04/17/21 latanoprost 0.005 % eye drops 1 drp ophthalmic (eye) DAILY 04/17/21 cyanocobalamin (vitamin B-12) 1,000 mcg capsule 1,000 mcg PO DAILY 07/29/22 krill oil 500 mg capsule 500 mg PO DAILY 07/29/22 omeprazole 40 mg capsule,delayed release 40 mg PO DAILY #30 caps 03/10/23 amlodipine 5 mg tablet 5 mg PO DAILY 06/27/23 ibuprofen 200 mg capsule 400 mg PO Q6H PRN 09/27/23 turmeric 100 mg-josse 150 mg-olive 50 mg-oreg 150 mg-capryl capsule 3 cap PO QDAY 09/27/23 clobetasol 0.05 % topical ointment 1 applic topical .COMPLEX #15 grams 05/16/24 Allergies Allergies No Known Allergies Allergy (Verified 02/07/24 12:41) Sleep Disorder Evaluation Hx of Sleep Apnea: No Do you snore loudly (louder than talking or can be heard through closed doors)?: Yes Do you often feel tired/ fatigued/ sleepy during daytime?: Yes (declines sleep study) Has anyone observed you stop breathing during sleep?: No History of Hypertension (for STOP score): No STOP Results: Positive Medical Utilization Medical Devices Do you use a peak flow meter at home?: No Do you use a spacer device with your inhalers?: No Medical Utilization Number of hospital visits in the last year?: 0 Do you see your physician on a regular schedule?: Yes How often?: 1 Advanced Directives Advanced Directives Power of Police Pilot: Yes Living Will: Yes Advance Directives Information Provided: Yes Advance Directives on File: Yes DNR Order?:: No Past Medical History Covid-19 Screening Physicial Symptoms Other Clinical Concerns Exposure Risk Pertinent Comorbidities 65 years or older:: Yes Has a chronic lung disease or moderate to severe asthma:: Yes Medical History Medical History (Reviewed 02/07/24 @ 12:53 by 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, 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[employer]) Contact with and (suspected) exposure to other viral communicable diseases Acute bronchitis, unspecified Breast lump History of osteoarthritis History of pneumonia unusual fatigue Surgical History Surgical History History of colonoscopy (~2018) Social History Smoking History Smoking Status: Never smoker Alcohol Use Alcohol Usage: No Occupation Occupation (List type of work in comments):: Retired Hobbies, Recreation, Social Activities Hobbies: Other (grandkids) Recreational Activities: I am able to engage in all my recreational activities Functioning ADL/IADL Current Ability Current Ability: Independent: Self-Care (e.g.,grooming, dressing, & bathing), Independent: Ambulation, Independent: Transfer and Independent: Household tasks (e.g., light meal prep, laundry, shopping) Pt Functioning Prior to Problem Prior Functioning: Self-Care (e.g.,grooming, dressing, & bathing): Independent, Ambulation: Independent, Transfer: Independent and Household tasks (e.g., light meal prep, laundry, shopping): Independent Social Environment Status Marital Status: Current Living Arrangements Living Environment:: Alone Children How many children do you have?: 2 Do any of your children live nearby?: Yes Safety Do you feel safe in your surroundings?: Yes Assistance Do you need any assistance at home?: no Review of Systems Review of Systems Review of Systems Respiratory: Reports Pleuritic Pain, SOB upon Exertion, Wheezing, Appetite, Normal, Fatigue and Sleep, Normal; Denies Cough, Hemoptysis, SOB at Rest, Sputum production, Dizziness/Lightheadedness, PVD or Sexual changes Pain Is Patient Pain Free?: No Pain Location: chest Pain Level: 09/24 Risk Factor Assessment Chief Complaint Chief Complaint: ILD Vital Signs Pulse Rate: 79 Pulse Rhythm: Regular Pulse Ox: 98 Blood Pressure: 118/64 Obesity Height: 5 ft 3 in Weight:: 122 lb Weight in Pounds: 122.0 lbs Body Mass Index (BMI): 21.6 Nutritional Referral for Obesity: No (declines) Physical Activity Physical Inactivity: Reg Exercise 30 min/day (walking) Risk Stratification Risk Guidelines: Moderate Risk: Risk Factor for Smoking, Risk Factor for Dyslipidemia, Risk Factor for Diabetes, Risk Factor for Obesity, Risk Factor for Hypertension, Risk Factor for Sedentary Lifestyle and Risk Factor for Depression For Smoking Smoking Risk Guidelines For Dyslipidemia Dyslipidemia Risk Guidelines For Diabetes Mellitus Diabetes Risk Guidelines For Obesity/Overweight Obesity/Overweight Risk Guidelines For Hypertension Hypertension Risk Guidelines For Sedentary Lifestyle Sedentary Lifestyle Risk Guidelines For Depression Depression Risk Guidelines Motivation Motivation to Participate On a scale of 1 to 10, how prepared are you to commit to attending program?: 5 What do you see as barriers to successfully being able to complete the program?: nothing What do you see as the benefits of succesfully completing the program? In other words, what do you hope to get out of participating in the program?: more energy, more education Are there issues you are dealing with that will interfere with completing the program?: no Do you have a spouse or signficant other, family or friends who will help support you to complete the program?: yes Diagnostic Data Review Pulmonary Function Test FEV1:: 62 FVC:: 52 FEV1/FVC%:: 116
--- NOTE | 2024-06-12 10:12 | PR.ITP_ITS ---
General Information2 General Information Admitting Diagnosis: ILD PFT FEV1:: 62 FVC:: 52 FEV1/FVC%:: 116 Personal Learning Style/Barriers Personal Learning Style:: Audio/Visual Barriers to Learning: None Stage of change r/t lifestyle modifications: Contemplation Education/Goals SC Patient Goals: Increase muscle strength: Initial Assessment, Experience less dyspnea: Initial Assessment, Improve energy level: Initial Assessment, Improve the ability to cope with ADLs: Initial Assessment, Improve knowledge of lung disease: Initial Assessment and Improve my quality of life: Initial Assessment Exercise - Initial Assessment Visit Date of Eval: 06/12/24 (initial eval ) Problem/Goals Goals:: Aerobic exercise 30-60 mins x 12 weeks [36 sessions] Physician Prescribed Exercise Modalities: Treadmill, Rower, [employer] Airdyne AD-7, [place] ViniFit Stepper, [employer] Pro- II Ergometer and [place] ViniFit Lateral [place] Frequency (days/week): 3 Duration (Minutes):: 30-45 Intensity: 60-80% of age predicted maximum heart rate reserve Current METSs:: 2 Target HR:: 105 (91-105) Resting Blood Pressure: 118/64 EKG Type: NSR 1DAVB Plan Plan and Plan to Review:: Benefits of exercise, Core components of exercise, How to measure dyspnea level, How to monitor dyspnea level, Exercise intensity, Exercise safety guideline, Home exercise guidelines and Shauna: 3-/-13 Nutrition/Wt Mgmt - Initial Visit Date of Eval: 06/12/24 (initial eval ) Weight Management Admit Height:: 5 ft 3 in Admit Weight:: 122 lb Admit BMI:: 21.6 Intervention Referral to dietitian:: No Will attend diet classes:: Yes Intervention/Plan: Instruct on ideal BMI & set weight loss goal w/patient, Assist pt to ID & incorporate diet changes for weight loss by S9, Refer to Structured Weight Loss program as appropriate, Encourage goal of using 250- 300dcal per session for weight loss and Other additional plan/interventions Plan Nutrition Plan: Yes: Review BMI or WC & identify target wt & strategies for wt control, Yes: Nutrition education class:, Yes: Medication education class [Prednisone]:, Yes: Weight control education class:, Yes: Education re: Need for ongoing weight monitoring, Yes: Food diary: and Yes: Physical activity log: Nutrition/Wt Mgmt - 30-Day Weight Management Height: 5 ft 3 in Weight:: 122 lb BMI: 21.6 Nutrition/Wt Mgmt - 60-Day Weight Management Height: 5 ft 3 in Weight:: 122 lb BMI: 21.6 Nutrition/Wt Mgmt - 90-Day Weight Management Height: 5 ft 3 in Weight:: 122 lb BMI: 21.6 Nutrition/Wt Mgmt - Final Weight Management Height: 5 ft 3 in Weight:: 122 lb BMI: 21.6 Psychosocial - Initial Assess Visit Date of Eval: 06/12/24 (initial eval ) Problems/Goals History of Emotional Disorders: None Psychosocial Goals: 1. Patient is free from overwhelming symtoms of depression (or anxiety, 2. Identifies personal stressors & states the strategies for managing, 3. Identifies activities to decrease isolation and/or symptoms of, 4. Improved psychosocial coping skills. and 5. Verbalizes coping strategies. Psychosocial Test Tool Used:: Pulmonary QOL and PHQ-9 Questionnaire Referred to MD for counseling:: No Referral to Behavioral Health PS - Interventions: Yes: Attend Stress Management Classes Intervention/Plan: See List Interventions/Plan:: Assess stressors,coping strategies & signs of derpression on admission, Instruct/assist pt to develop coping & personal stress Mgt strategies, Refer to Behavioral Health if appropriate, Refer to Physician if appropriate, Instruct patient to recognize signs & symptoms of depression, Instruct patient to recog and Other additional plan/intervention Psychosocial - 30-Day Problems/Goals History of Emotional Disorders: None Psychosocial Goals: 1. Patient is free from overwhelming symtoms of depression (or anxiety, 2. Identifies personal stressors & states the strategies for managing, 3. Identifies activities to decrease isolation and/or symptoms of, 4. Improved psychosocial coping skills. and 5. Verbalizes coping strategies. Psychosocial Test Tool Used:: Pulmonary QOL and PHQ-9 Questionnaire Referred to MD for counseling:: No Referral to Behavioral Health PS - Interventions: Yes: Attend Stress Management Classes Plan Interventions/Plan:: Assess stressors,coping strategies & signs of derpression on admission, Instruct/assist pt to develop coping & personal stress Mgt strategies, Refer to Behavioral Health if appropriate, Refer to Physician if appropriate, Instruct patient to recognize signs & symptoms of depression, Instruct patient to recog and Other additional plan/intervention Psychosocial - 60-Day Problems/Goals History of Emotional Disorders: None Psychosocial Goals: 1. Patient is free from overwhelming symtoms of depression (or anxiety, 2. Identifies personal stressors & states the strategies for managing, 3. Identifies activities to decrease isolation and/or symptoms of, 4. Improved psychosocial coping skills. and 5. Verbalizes coping strategies. Psychosocial Test Tool Used:: Pulmonary QOL and PHQ-9 Questionnaire Referred to MD for counseling:: No Referral to Behavioral Health PS - Interventions: Yes: Attend Stress Management Classes Plan Interventions/Plan:: Assess stressors,coping strategies & signs of derpression on admission, Instruct/assist pt to develop coping & personal stress Mgt strategies, Refer to Behavioral Health if appropriate, Refer to Physician if appropriate, Instruct patient to recognize signs & symptoms of depression, Instruct patient to recog and Other additional plan/intervention Psychosocial - 90-Day Problems/Goals History of Emotional Disorders: None Psychosocial Goals: 1. Patient is free from overwhelming symtoms of depression (or anxiety, 2. Identifies personal stressors & states the strategies for managing, 3. Identifies activities to decrease isolation and/or symptoms of, 4. Improved psychosocial coping skills. and 5. Verbalizes coping strategies. Psychosocial Test Tool Used:: Pulmonary QOL and PHQ-9 Questionnaire Referred to MD for counseling:: No Referral to Behavioral Health PS - Interventions: Yes: Attend Stress Management Classes Plan Interventions/Plan:: Assess stressors,coping strategies & signs of derpression on admission, Instruct/assist pt to develop coping & personal stress Mgt strategies, Refer to Behavioral Health if appropriate, Refer to Physician if appropriate, Instruct patient to recognize signs & symptoms of depression, Instruct patient to recog and Other additional plan/intervention Psychosocial - Final Assess Problems/Goals History of Emotional Disorders: None Psychosocial Goals: 1. Patient is free from overwhelming symtoms of depression (or anxiety, 2. Identifies personal stressors & states the strategies for managing, 3. Identifies activities to decrease isolation and/or symptoms of, 4. Improved psychosocial coping skills. and 5. Verbalizes coping strategies. Psychosocial Test Tool Used:: Pulmonary QOL and PHQ-9 Questionnaire Referred to MD for counseling:: No Referral to Behavioral Health PS - Interventions: Yes: Attend Stress Management Classes Plan Interventions/Plan:: Assess stressors,coping strategies & signs of derpression on admission, Instruct/assist pt to develop coping & personal stress Mgt strategies, Refer to Behavioral Health if appropriate, Refer to Physician if appropriate, Instruct patient to recognize signs & symptoms of depression, In struct patient to recog and Other additional plan/intervention Oxygen & Oxygen Titration Init Visit Date of Eval: 06/12/24 (initial eval ) Initial Assessment Oxygen on Admission: None Patient Reports:: No cough Plans Plan: Monitor SpO2 rest & with exercise Reviewed prescribed medications:: Purpose, Schedule, Side effects and Importance of compliance Instruct correct technique/timing & care:: MDI, DPI, Nebulizer and Return demo use of inhaler Bronchial Hygiene Plan: Controlled cough, CPT, Vibratory PEP device, VEST, Role of exercise in secretion clearance, NS Nasal spray, Hydration, Hand hygiene, Evaluate sputum, When to call MD, Signs/symptoms to report:, Influenza/Pneumovax vaccines and Cleaning of respiratory equipment Core Components - Initial Visit Date of Eval: 06/12/24 (initial eval ) Hypertension Hypertension Diagnosis:: Not Applicable BP: 118/64 Citizen Of [place] [employer] Hypertension Guidelines Tobacco - Initial Assessment Tobacco Program Goals Do you have family support?: Yes Tobacco Use: Non-smoker Exacerbation Mgmt & Airway Clearance Goals: Pt demonstrates effective cough, effective secretion clearance. and Pt describes signs and symptoms of infection. Patient Reports:: No cough Plan: Monitor SpO2 rest & with anesthesiology medical doctor correct technique/timing & care:: MDI, DPI, Nebulizer and Return demo use of inhaler Bronchial Hygiene Plan: Controlled cough, CPT, Vibratory PEP device, VEST, Role of exercise in secretion clearance, NS Nasal spray, Hydration, Hand hygiene, Evaluate sputum, When to call MD, Signs/symptoms to report:, Influenza/Pneumovax vaccines and Cleaning of respiratory equipment Medication Interventions/plans: Instruct on medication effects & side effects, Review medication list w/patient every two weeks and Instruct importance of taking meds as ordered & assist problem solving Medication Goals: Adherence to prescribed medications and Correct technique/timing & care of MDI, DPI, nebulizer, and spacer. Does pt report taking home meds as prescribed?: Yes Reviewed prescribed medications:: Purpose, Schedule, Side effects and Importance of compliance Diabetes Diabetes:: No Referral to dietitian:: No Referral to Diabetic Clinic:: No Will attend diet classes:: Yes Core Components - 30 DAYS Hypertension Hypertension Diagnosis:: Not Applicable Resting Blood Pressure:: 118/64 Citizen Of [place] [employer] Hypertension Guidelines Tobacco - 30-Day Tobacco Program Goals Do you have family support?: Yes Tobacco Use: Non-smoker Diabetes Diabetes:: No Core Components - 60 DAYS Hypertension Hypertension Diagnosis:: Not Applicable Resting Blood Pressure:: 118/64 Citizen Of [place] [employer] Hypertension Guidelines Tobacco - 60-Day Tobacco Program Goals Do you have family support?: Yes Tobacco Use: Non-smoker Diabetes Diabetes:: No Core Components - 90 DAYS Hypertension Hypertension Diagnosis:: Not Applicable Resting Blood Pressure:: 118/64 Citizen Of [place] [employer] Hypertension Guidelines Tobacco - 90-Day Tobacco Program Goals Do you have family support?: Yes Tobacco Use: Non-smoker Diabetes Diabetes:: No Core Components - Final Hypertension Hypertension Diagnosis:: Not Applicable Resting Blood Pressure:: 118/64 Citizen Of [place] [employer] Hypertension Guidelines Tobacco - Final Tobacco Program Goals Do you have family support?: Yes Tobacco Use: Non-smoker Diabetes Diabetes:: No Patient Health Questionnaire PHQ-9 Screening Initial Assessment: 1. Little interest or pleasure in doing things: Not at all 2. Feeling down, depressed, or hopeless: Several days 3. Trouble falling or staying asleep, or sleeping too much: Not at all 4. Feeling tired or having little energy: Nearly every day 5. Poor appetite or overeating: Not at all 6. Feeling bad about yourself -- or that you are a failure or have let yourself or your family down: Several days 7. Trouble concentrating on things, such as reading the newspaper or watching television: Not at all 8. Moving or speaking so slowly that other people could have noticed. Or the opposite - being so fidgety or restless that you have been moving around a lot more than usual: Not at all 9. Thoughts that you would be better off , or of hurting yourself in some way: Not at all How difficult have these problems made it for you to do your work, take care of things at home, or get along with other people?: Somewhat difficult Total Score: 5 Knowledge Questionaire (BCKQ) Information Information: [facility] COPD Knowledge Questionnaire (BCKQ) This questionnaire is designed to find out what you know about your lung problem. It should be completed without help form anyone else. This usually takes between 10 and 20 minutes. Your answers will help us to find out what information you need to help you to understand and manage your lung condition. Filippo the igiugig which you think is the correct answer. Questions 1. In COPD: a. In COPD the word chronic means it is severe: True b. COPD can only be confirmed by breathing tests: Don't know c. In COPD ther is usually gradual worsening over time: Don't know d. In COPD oxygen levels in the blood are always low: Don't know e. COPD is usually in people less than 40 years old: Don't know 2. COPD: Ale than 80% of COPD cases are caused by cigarette smoking: Don't know b. COPD can be caused by occupational dust exposure: True c. Longstanding asthma can develop into COPD: Don't know d. COPD is commonly an inherited disease: Don't know e. Women are less vunerable to the effects of cigarette than men: Don't know 3. The following symptoms are Common in COPD: a. Swelling of the ankles is common in COPD:: Don't know b. Fatigue [tiredness] is common in COPD: True c. Wheezing is common in COPD: True d. Crushing chest pain is common in COPD: Don't know e. Rapid weight loss is common in COPD: Don't know 4. Breathlessness in COPD: a. Severe breathlessness prevents travel by air: Don't know b. Breathlessness can be worsened by eating large meals: True c. Breathlessness means that your oxygen levels are low: Don't know d. Breathlessness is a normal response to exercise: True e. Breathlessness is primarily caused by a narrowing of the bronchial tubes: Don't know 5. Phlegm (sputum): a. Coughing phlegm is a common symptom in COPD: Don't know b. Clearing phlegm is more difficult if you get dehydrated: Don't know c. Bronchodilator inhalers can help clear phlegm: Don't know d. Phlegm causes harm if swallowed: Don't know e. Clearing phlegm can be assisted by breathing exercises: Don't know 6. Chest infections / exacerbations: a. Chest infections often cause coughing of blood: Don't know b. Chest infection phlegm usually becomes coloured (ylw/grn): Don't know cExerbations (episodes of worsening) can occur in the absence of chest infection: Don't know d. Chest infections are always accompanied by a high temperature: Don't know e. Steroid tablets should be taken whenever there is an exacerbation: Don't know 7. Excercise in COPD: aWalking excercises better than breathing to improve fitness: True b. Exercise should be avoided as it strains the lungs: False c. Exercise can help maintain your bone density: True d. Exercise helps relieve depression: True e. Exercise should be stopped if it makes you breathless: False 8. Smoking: a. Stopping smoking will reduce the risk of heart disease: True b. Stopping smoking will slow down further lung damage: True c. Stopping smoking is pointless as the damage is done: True d.Stopping smoking usually results in improved lung function: True eNicotine replacement therapy only available on prescription: Don't know 9. Vaccination: a. A flu jab is recommended every year: True b. You can get flu from having a flu jab: Don't know c. You can only have a flu jab if you are 65 or over: False d. A pneumonia jab protects against all forms of pneumonia: Don't know e.You can have a pneumonia jab and a flu job on the same day: True 10. Inhaled bronchodilators: a. Bronchodilators act quickly (within 10 minutes): Don't know b. Both short & long acting bronchodilators can be taken on the same day: Don't know c. Spacers (volumatic,nebuhaler,serochamber)should be dried w/atowel after washing: Don't know d. A spacer device increases the medication to the lungs: Don't know e. Tremor may be a side effect of bronchodilators: Don't know 11. Antibiotic treatment in COPD: a. To be effective, the course should last at least 10 days: Don't know b. Excessive use of antibiotics can cause resistant bacteria (germs): Don't know c. Antibiotics will clear all chest infections: Don't know d. Antibiotic treatment is necessary for an exacerbation (worsening) however mild: Don't know e. Seek advice if antibiotics cause severe diarrhoea: True 12. Steroid tablets given for COPD (eg Prednisolone): a. Steroid tablets help strengthen muscles: Don't know b. Steroid tablets should be avoided if there is a chest infection: Don't know c. The risk of long-term side effects due to steroids is less w/short courses then w/continous treatment: Don't know dIndigestion is common side effect from using steroid tablet: Don't know e. Steroid tablets can increase your appetite: Don't know 13. Inhaled steroids (brown, red or orange): a. Inhaled steroids should be stopped if you are given steroid tablets: Don't know bSteroid inhalers can be used for rapid relief breathlessnes: Don't know c. Spacer devices reduce the risk of getting thrush in the mouth: Don't know d.Steroid inhaler should be taken before your bronchodilator: Don't know e. Inhaled steroids improve lung function in COPD: Don't know COPD Knowledge Test Total Score:: 16 COPD Assessment Test [CAT] Questions Never cough = 0, Cough all the time = 5: 1 No phlegm = 0, Chest full of phlegm = 5: 0 No chest tightness = 0, Chest very tight = 5: 0 No breathless w/exertion = 0, Very breathless w/exertion = 5: 5 No limitations w/activity = 0, Very limited w/activity = 5: 2 Confident leaving home = 0, Not at all confident = 5: 0 Sleep soundly = 0, Don't sleep soundly = 5: 2 Lots of energy = 0, No energy at all = 5: 4 Total CAT score:: 14 Self-Efficacy 6-Item Scale Initial Assessment: We would like to know how confident you are in doing certain activities. Please select your confidence level for: Fatigue Select Number: 3 Physical Discomfort or Pain Select Number: 3 Emotional Distress Select Number: 3 Other Symptoms or Health Problems Select Number: 3 Different Tasks and Activities Select Number: 4 Medication Select Number: 3 Total Score:: 3 Nutrition Survey Nutrition Survey Instructions Scoring Instructions Nutrition Survey Initial: Have you lost >10 lbs over the past 2 months without trying?: No Are you following a special diet at home for diabetes, low fat, or low salt?: No Are you interested in meeting with a dietitian for help understanding your diet?: No Do you eat less than 3 meals a day?: No Do you eat fatty meats (gaston, sausage, ribs, etc), fried foods, desserts, large amounts of salad dressings, margarine, butter, or cheese most days?: No Do you have food allergies? [Enter types in comment field]: No Do you eat in restaurants more than 3 times a week?: No Do you season food with salt, seasoning salt, or garlic salt?: Yes Do you used canned, boxed, frozen meals, or soups, seasoning packets?: Yes Total Score:: 2
[2024-06-12 10:37] VITALS: BP 118/64; PULSE 79; O2SAT 98
[2024-06-12 10:41] VITALS: BMI 21.6
[2024-06-12 11:03] VITALS: BP 118/64
[2024-06-12 11:12] VITALS: BP 118/64
[2024-06-12 11:14] VITALS: BMI 21.6
== END ==
PROVIDERS: PCP Student in an Organized Health Care Education/Training Program
DX: J84.9 Interstitial pulmonary disease, unspecified (principal)

== ENCOUNTER 2024-07-11 13:00 | Outpatient (RCR) | payer MEDICARE, SELFPAY ==
[2024-06-12 10:41] VITALS: BMI 21.6
--- NOTE | 2024-07-13 08:37 | PR.ITP_ITS ---
Exercise - Initial Assessment Visit Session Number:: 12 Physician Prescribed Exercise Modalities: Treadmill, [employer] Airdyne AD-7 and [employer] Stepper Current METSs:: 3.4 Target HR:: 105 (91-105) Target RPE 12-16:: 12 Current RPD:: 2 Maximum Exercise HR:: 124 Resting Blood Pressure: 100/52 Maximum Exercise Blood Pressure: 132/60 Minimum SpO2 with exercise: 89 (At times pt does require 2L O2 to maintain her pulse ox. ) EKG Type: NSR to ST with rare PAC's Nutrition/Wt Mgmt - Initial Visit Session Number:: 12 Weight Management Admit Height:: 5 ft 3 in Admit Weight:: 122 lb Admit BMI:: 21.6 Nutrition/Wt Mgmt - 30-Day Visit Date of Eval: 07/13/24 Session Number:: 12 Weight Management Height: 5 ft 3 in Weight:: 122 lb BMI: 21.6 Weight Goals Progress:: Goal met (Pt is at a healthy weight) Nutrition/Wt Mgmt - 60-Day Visit Session Number:: 12 Weight Management Height: 5 ft 3 in Weight:: 122 lb BMI: 21.6 Nutrition/Wt Mgmt - 90-Day Visit Session Number:: 12 Weight Management Height: 5 ft 3 in Weight:: 122 lb BMI: 21.6 Nutrition/Wt Mgmt - Final Visit Session Number:: 12 Weight Management Height: 5 ft 3 in Weight:: 122 lb BMI: 21.6 Psychosocial - Initial Assess Visit Session Number:: 12 Problems/Goals History of Emotional Disorders: None Psychosocial Goals: 1. Patient is free from overwhelming symtoms of depression (or anxiety, 2. Identifies personal stressors & states the strategies for managing, 3. Identifies activities to decrease isolation and/or symptoms of, 4. Improved psychosocial coping skills., 5. Verbalizes coping strategies., 6. Adequate treatment of depression. and 7. Improved Q.O.L. Psychosocial Test Tool Used:: Pulmonary QOL and PHQ-9 Questionnaire Referral to Behavioral Health PS - Interventions: Yes: Attend Stress Management Classes Intervention/Plan: See List Interventions/Plan:: Assess stressors,coping strategies & signs of derpression on admission, Instruct/assist pt to develop coping & personal stress Mgt strategies, Refer to Behavioral Health if appropriate, Refer to Physician if appropriate, Instruct patient to recognize signs & symptoms of depression, Instruct patient to recog and Other additional plan/intervention Comments:: Pt denies any psychosocial issues at this time Psychosocial - 30-Day Visit Date of Eval: 07/13/24 Session Number:: 12 Problems/Goals History of Emotional Disorders: None Psychosocial Goals: 1. Patient is free from overwhelming symtoms of depression (or anxiety, 2. Identifies personal stressors & states the strategies for managing, 3. Identifies activities to decrease isolation and/or symptoms of, 4. Improved psychosocial coping skills., 5. Verbalizes coping strategies., 6. Adequate treatment of depression. and 7. Improved Q.O.L. Psychosocial Test Tool Used:: Pulmonary QOL and PHQ-9 Questionnaire Referral to Behavioral Health PS - Interventions: Yes: Attend Stress Management Classes Plan Interventions/Plan:: Assess stressors,coping strategies & signs of derpression on admission, Instruct/assist pt to develop coping & personal stress Mgt strategies, Refer to Behavioral Health if appropriate, Refer to Physician if appropriate, Instruct patient to recognize signs & symptoms of depression, Instruct patient to recog and Other additional plan/intervention Comments:: Pt denies any psychosocial issues at this time Psychosocial - 60-Day Visit Session Number:: 12 Problems/Goals History of Emotional Disorders: None Psychosocial Goals: 1. Patient is free from overwhelming symtoms of depression (or anxiety, 2. Identifies personal stressors & states the strategies for managing, 3. Identifies activities to decrease isolation and/or symptoms of, 4. Improved psychosocial coping skills., 5. Verbalizes coping strategies., 6. Adequate treatment of depression. and 7. Improved Q.O.L. Psychosocial Test Tool Used:: Pulmonary QOL and PHQ-9 Questionnaire Referral to Behavioral Health PS - Interventions: Yes: Attend Stress Management Classes Plan Interventions/Plan:: Assess stressors,coping strategies & signs of derpression on admission, Instruct/assist pt to develop coping & personal stress Mgt strategies, Refer to Behavioral Health if appropriate, Refer to Physician if appropriate, Instruct patient to recognize signs & symptoms of depression, Instruct patient to recog and Other additional plan/intervention Comments:: Pt denies any psychosocial issues at this time Psychosocial - 90-Day Visit Session Number:: 12 Problems/Goals History of Emotional Disorders: None Psychosocial Goals: 1. Patient is free from overwhelming symtoms of depression (or anxiety, 2. Identifies personal stressors & states the strategies for managing, 3. Identifies activities to decrease isolation and/or symptoms of, 4. Improved psychosocial coping skills., 5. Verbalizes coping strategies., 6. Adequate treatment of depression. and 7. Improved Q.O.L. Psychosocial Test Tool Used:: Pulmonary QOL and PHQ-9 Questionnaire Referral to Behavioral Health PS - Interventions: Yes: Attend Stress Management Classes Plan Interventions/Plan:: Assess stressors,coping strategies & signs of derpression on admission, Instruct/assist pt to develop coping & personal stress Mgt strategies, Refer to Behavioral Health if appropriate, Refer to Physician if appropriate, Instruct patient to recognize signs & symptoms of depression, Instruct patient to recog and Other additional plan/intervention Comments:: Pt denies any psychosocial issues at this time Psychosocial - Final Assess Visit Session Number:: 12 Problems/Goals History of Emotional Disorders: None Psychosocial Goals: 1. Patient is free from overwhelming symtoms of depression (or anxiety, 2. Identifies personal stressors & states the strategies for managing, 3. Identifies activities to decrease isolation and/or symptoms of, 4. Improved psychosocial coping skills., 5. Verbalizes coping strategies., 6. Adequate treatment of depression. and 7. Improved Q.O.L. Psychosocial Test Tool Used:: Pulmonary QOL and PHQ-9 Questionnaire Referral to Behavioral Health PS - Interventions: Yes: Attend Stress Management Classes Plan Interventions/Plan:: Assess stressors,coping strategies & signs of derpression on admission, Instruct/assist pt to develop coping & personal stress Mgt strategies, Refer to Behavioral Health if appropriate, Refer to Physician if appropriate, Instruct patient to recognize signs & symptoms of depression, Instruct patient to recog and Other additional plan/intervention Comments:: Pt denies any psychosocial issues at this time Oxygen & Oxygen Titration Init Visit Session Number:: 12 Initial Assessment SpO2:: 89 (At times pt does require 2L O2 to maintain her pulse ox. ) Oxygen & Oxygen Titration 30D Visit Date of Eval: 07/13/24 Session Number:: 12 Reassessment Reassessment- 30 Days: Demonstrate knowledge of O2 Rx at rest & w/exercise SpO2:: 89 (At times pt does require 2L O2 to maintain her pulse ox. ) Oxygen & Oxygen Titration 60D Visit Date of Eval: 07/13/24 Session Number:: 12 Reassessment SpO2:: 89 (At times pt does require 2L O2 to maintain her pulse ox. ) Oxygen & Oxygen Titration 90D Visit Date of Eval: 07/13/24 Session Number:: 12 Reassessment SpO2:: 89 (At times pt does require 2L O2 to maintain her pulse ox. ) Oxygen & Oxygen Titration ANASTASIYA Visit Date of Eval: 07/13/24 Session Number:: 12 Reassessment SpO2:: 89 (At times pt does require 2L O2 to maintain her pulse ox. ) Core Components - Initial Visit Session Number:: 12 Hypertension Hypertension Diagnosis:: Not Applicable BP: 100/52 [place] [employer] Hypertension Guidelines Blood Pressure: 132/60 Outcomes/Goals: Able to verbalize/achieve optimal blood pressure <130/80 and Incorporates diet changes & exercise for blood pressure control by DC Tobacco - Initial Assessment Tobacco Program Goals Tobacco Use: Non-smoker Diabetes Diabetes:: No Core Components - 30 DAYS Visit Date of Eval: 07/13/24 Session Number:: 12 Hypertension Hypertension Diagnosis:: Not Applicable Resting Blood Pressure:: 100/52 [place] [employer] Hypertension Guidelines Peak Exercise Blood Pressure:: 132/60 Change in medication: No Outcomes/Goals: Able to verbalize/achieve optimal blood pressure <130/80 and Incorporates diet changes & exercise for blood pressure control by DC Interventions/plan: Instruct on optimal blood pressure, hypertension & medications and Instruct on effects of sodium, alcohol, stress, exercise &hypertension 30 day Reassessments:: Met Reassessment Notes & Comments:: Pt's BP's are within AHA normal limits. Tobacco - 30-Day Tobacco Program Goals Tobacco Use: Non-smoker Exacerbation Mgmt & Airway Clearance Reassessment: Demonstrates knowledge of O2 Rx at rest and Demonstrates knowledge of O2 Rx with exercise Bronchial Hygiene Plan: Yes: Pt demonstrates correctly for effective cough, Yes: Pt demo correct for CPT, Yes: Pt demo correct for device, Yes: Pt demo correct for NS nasal spray, Yes: Pt demo correct for sputum management, Yes: Pt demo correct for improved hydration, Yes: Pt demo correct for hand hygiene, Yes: Pt demo correct for evalute sputum, Yes: Pt demo correct for verbalize when to call MD and Yes: Pt demo correct for cleaning of respiratory equipment Medication Medication list reviewed:: Yes Taking medications 100% of the time:: Met Medication reassessment: Yes: Pt demonstrates correct technique timing for MDI, Yes: Pt demonstrates correct technique timing for DPI, Yes: Pt demonstrates correct technique timing for NEB and Yes: Pt demonstrates correct technique timing for spacer Diabetes Diabetes:: No Core Components - 60 DAYS Visit Session Number:: 12 Hypertension Hypertension Diagnosis:: Not Applicable Resting Blood Pressure:: 100/52 [place] [employer] Hypertension Guidelines Peak Exercise Blood Pressure:: 132/60 Change in medication: No Outcomes/Goals: Able to verbalize/achieve optimal blood pressure <130/80 and Incorporates diet changes & exercise for blood pressure control by DC Interventions/plan: Instruct on optimal blood pressure, hypertension & med ications and Instruct on effects of sodium, alcohol, stress, exercise &hypertension 60 day Reassessments:: Met Reassessment Notes & Comments:: Pt's BP's are within AHA normal limits. Tobacco - 60-Day Tobacco Program Goals Tobacco Use: Non-smoker Exacerbation Mgmt & Airway Clearance Reassessment: Demonstrates knowledge of O2 Rx at rest and Demonstrates knowledge of O2 Rx with exercise Bronchial Hygiene Plan: Yes: Pt demonstrates correctly for effective cough, Yes: Pt demo correct for CPT, Yes: Pt demo correct for device, Yes: Pt demo correct for NS nasal spray, Yes: Pt demo correct for sputum management, Yes: Pt demo correct for improved hydration, Yes: Pt demo correct for hand hygiene, Yes: Pt demo correct for evalute sputum, Yes: Pt demo correct for verbalize when to call MD and Yes: Pt demo correct for cleaning of respiratory equipment Medication Taking medications 100% of the time:: Met Medication reassessment: Yes: Pt demonstrates correct technique timing for MDI, Yes: Pt demonstrates correct technique timing for DPI, Yes: Pt demonstrates correct technique timing for NEB and Yes: Pt demonstrates correct technique timing for spacer Diabetes Diabetes:: No Core Components - 90 DAYS Visit Session Number:: 12 Hypertension Hypertension Diagnosis:: Not Applicable Resting Blood Pressure:: 100/52 [place] [employer] Hypertension Guidelines Peak Exercise Blood Pressure:: 132/60 Outcomes/Goals: Able to verbalize/achieve optimal blood pressure <130/80 and Incorporates diet changes & exercise for blood pressure control by DC Interventions/plan: Instruct on optimal blood pressure, hypertension & medications and Instruct on effects of sodium, alcohol, stress, exercise &hypertension 90 day Reassessments:: Met Reassessment Notes & Comments:: Pt's BP's are within AHA normal limits. Tobacco - 90-Day Tobacco Program Goals Tobacco Use: Non-smoker Exacerbation Mgmt & Airway Clearance Bronchial Hygiene Plan: Yes: Pt demonstrates correctly for effective cough, Yes: Pt demo correct for CPT, Yes: Pt demo correct for device, Yes: Pt demo correct for NS nasal spray, Yes: Pt demo correct for sputum management, Yes: Pt demo correct for improved hydration, Yes: Pt demo correct for hand hygiene, Yes: Pt demo correct for evalute sputum, Yes: Pt demo correct for verbalize when to call MD and Yes: Pt demo correct for cleaning of respiratory equipment Medication Medication reassessment: Yes: Pt demonstrates correct technique timing for MDI, Yes: Pt demonstrates correct technique timing for DPI, Yes: Pt demonstrates correct technique timing for NEB and Yes: Pt demonstrates correct technique ti marleny for spacer Diabetes Diabetes:: No Core Components - Final Visit Session Number:: 12 Hypertension Hypertension Diagnosis:: Not Applicable Resting Blood Pressure:: 100/52 [place] [employer] Hypertension Guidelines Peak Exercise Blood Pressure:: 132/60 Outcomes/Goals: Able to verbalize/achieve optimal blood pressure <130/80 and Incorporates diet changes & exercise for blood pressure control by DC Tobacco - Final Tobacco Program Goals Tobacco Use: Non-smoker Exacerbation Mgmt & Airway Clearance Bronchial Hygiene Plan: Yes: Pt demonstrates correctly for effective cough, Yes: Pt demo correct for CPT, Yes: Pt demo correct for device, Yes: Pt demo correct for NS nasal spray, Yes: Pt demo correct for sputum management, Yes: Pt demo correct for improved hydration, Yes: Pt demo correct for hand hygiene, Yes: Pt demo correct for evalute sputum, Yes: Pt demo correct for verbalize when to call MD and Yes: Pt demo correct for cleaning of respiratory equipment Medication Medication reassessment: Yes: Pt demonstrates correct technique timing for MDI, Yes: Pt demonstrates correct technique timing for DPI, Yes: Pt demonstrates correct technique timing for NEB and Yes: Pt demonstrates correct technique timing for spacer Diabetes Diabetes:: No Patient Health Questionnaire PHQ-9 Screening 30-Day Re-eval Assessment: 1. Little interest or pleasure in doing things: Not at all 2. Feeling down, depressed, or hopeless: Several days 3. Trouble falling or staying asleep, or sleeping too much: Not at all 4. Feeling tired or having little energy: Nearly every day 5. Poor appetite or overeating: Not at all 6. Feeling bad about yourself -- or that you are a failure or have let yourself or your family down: Several days 7. Trouble concentrating on things, such as reading the newspaper or watching television: Not at all 8. Moving or speaking so slowly that other people could have noticed. Or the opposite - being so fidgety or restless that you have been moving around a lot more than usual: Not at all 9. Thoughts that you would be better off , or of hurting yourself in some way: Not at all How difficult have these problems made it for you to do your work, take care of things at home, or get along with other people?: Somewhat difficult Total Score: 5 Knowledge Questionaire (BCKQ) Information Information: [place] COPD Knowledge Questionnaire (BCKQ) This questionnaire is designed to find out what you know about your lung problem. It should be completed without help form anyone else. This usually takes between 10 and 20 minutes. Your answers will help us to find out what information you need to help you to understand and manage your lung condition. [place] which you think is the correct answer. Self-Efficacy 6-Item Scale 30-Day Re-eval Assessment: We would like to know how confident you are in doing certain activities. Please select your confidence level for: Fatigue Select Number: 3 Physical Discomfort or Pain Select Number: 3 Emotional Distress Select Number: 3 Other Symptoms or Health Problems Select Number: 3 Different Tasks and Activities Select Number: 4 Medication Select Number: 3 Total Score:: 3 Nutrition Survey Nutrition Survey Instructions Scoring Instructions
[2024-07-13 08:51] VITALS: BP 100/52; BP 132/60; O2SAT 89; BMI 21.6
== END 2024-07-14 23:59 ==
LOC: PR 13:00
PROVIDERS: PCP Student in an Organized Health Care Education/Training Program
DX: J84.9 Interstitial pulmonary disease, unspecified (principal)
CPT/HCPCS: 97150; G0239

== ENCOUNTER 2024-08-13 13:00 | Outpatient (RCR) | payer MEDICARE, SELFPAY ==
[2024-07-13 08:51] VITALS: BMI 21.6
[2024-07-15 00:08] VITALS: BP 100/52; BP 132/60; BMI 21.6
== END 2024-08-14 23:59 ==
LOC: PR 13:00
PROVIDERS: PCP Student in an Organized Health Care Education/Training Program
DX: J84.9 Interstitial pulmonary disease, unspecified (principal)
CPT/HCPCS: 97150; G0239

== ENCOUNTER 2024-09-14 13:00 | Outpatient (RCR) | payer MEDICARE, SELFPAY ==
[2024-07-13 08:51] VITALS: BMI 21.6
[2024-08-15 00:36] VITALS: BP 100/52; BP 132/60; BMI 21.6
--- NOTE | 2024-09-12 08:02 | PCM.PR.TP ---
Exercise - Initial Assessment Visit Session Number:: 30 Physician Prescribed Exercise Modalities: Treadmill, [employer] Airdyne AD-7 and Sci[employer] Stepper Current METSs:: 3.4 Target HR:: 105 (91-105) Current RPD:: 2 Maximum Exercise HR:: 115 Resting Blood Pressure: 104/62 Maximum Exercise Blood Pressure: 118/60 Minimum SpO2 with exercise: 91 EKG Type: NSR to ST Nutrition/Wt Mgmt - Initial Visit Session Number:: 30 Weight Management Admit Height:: 5 ft 3 in Admit Weight:: 121 lb Admit BMI:: 21.4 Nutrition/Wt Mgmt - 30-Day Visit Date of Eval: 09/12/24 Session Number:: 30 Weight Management Height: 5 ft 3 in Weight:: 121 lb BMI: 21.4 Nutrition/Wt Mgmt - 60-Day Visit Session Number:: 30 Weight Management Height: 5 ft 3 in Weight:: 121 lb BMI: 21.4 Weight Goals Progress:: Goal met (Pt has attended nutrition class and understands the benefits of a healthy low sodium diet.) Nutrition/Wt Mgmt - 90-Day Visit Date of Eval: 09/12/24 Session Number:: 30 Weight Management Height: 5 ft 3 in Weight:: 121 lb BMI: 21.4 Weight Goals Progress:: Goal met (Pt has attended nutrition class and understands the benefits of a healthy low sodium diet.) Nutrition/Wt Mgmt - Final Visit Session Number:: 30 Weight Management Height: 5 ft 3 in Weight:: 121 lb BMI: 21.4 Psychosocial - Initial Assess Visit Session Number:: 30 Problems/Goals History of Emotional Disorders: None Psychosocial Goals: 1. Patient is free from overwhelming symtoms of depression (or anxiety, 2. Identifies personal stressors & states the strategies for managing, 3. Identifies activities to decrease isolation and/or symptoms of, 4. Improved psychosocial coping skills., 5. Verbalizes coping strategies. and 7. Improved Q.O.L. Psychosocial Test Tool Used:: Pulmonary QOL and PHQ-9 Questionnaire Referred to MD for counseling:: No Referral to Behavioral Health PS - Interventions: Yes: Attend Stress Management Classes Intervention/Plan: See List Interventions/Plan:: Assess stressors,coping strategies & signs of derpression on admission, Instruct/assist pt to develop coping & personal stress Mgt strategies, Refer to Behavioral Health if appropriate, Refer to Physician if appropriate, Instruct patient to recognize signs & symptoms of depression and Instruct patient to recog Psychosocial - 30-Day Visit Date of Eval: 09/12/24 Session Number:: 30 Problems/Goals History of Emotional Disorders: None Psychosocial Goals: 1. Patient is free from overwhelming symtoms of depression (or anxiety, 2. Identifies personal stressors & states the strategies for managing, 3. Identifies activities to decrease isolation and/or symptoms of, 4. Improved psychosocial coping skills., 5. Verbalizes coping strategies. and 7. Improved Q.O.L. Psychosocial Test Tool Used:: Pulmonary QOL and PHQ-9 Questionnaire Referred to MD for counseling:: No Referral to Behavioral Health PS - Interventions: Yes: Attend Stress Management Classes Plan Interventions/Plan:: Assess stressors,coping strategies & signs of derpression on admission, Instruct/assist pt to develop coping & personal stress Mgt strategies, Refer to Behavioral Health if appropriate, Refer to Physician if appropriate, Instruct patient to recognize signs & symptoms of depression and Instruct patient to recog Psychosocial - 60-Day Visit Session Number:: 30 Problems/Goals History of Emotional Disorders: None Psychosocial Goals: 1. Patient is free from overwhelming symtoms of depression (or anxiety, 2. Identifies personal stressors & states the strategies for managing, 3. Identifies activities to decrease isolation and/or symptoms of, 4. Improved psychosocial coping skills., 5. Verbalizes coping strategies. and 7. Improved Q.O.L. Psychosocial Test Tool Used:: Pulmonary QOL and PHQ-9 Questionnaire Referred to MD for counseling:: No Referral to Behavioral Health PS - Interventions: Yes: Attend Stress Management Classes Plan Interventions/Plan:: Assess stressors,coping strategies & signs of derpression on admission, Instruct/assist pt to develop coping & personal stress Mgt strategies, Refer to Behavioral Health if appropriate, Refer to Physician if appropriate, Instruct patient to recognize signs & symptoms of depression and Instruct patient to recog Psychosocial - 90-Day Visit Date of Eval: 09/12/24 Session Number:: 30 Problems/Goals History of Emotional Disorders: None Psychosocial Goals: 1. Patient is free from overwhelming symtoms of depression (or anxiety, 2. Identifies personal stressors & states the strategies for managing, 3. Identifies activities to decrease isolation and/or symptoms of, 4. Improved psychosocial coping skills., 5. Verbalizes coping strategies. and 7. Improved Q.O.L. Psychosocial Test Tool Used:: Pulmonary QOL and PHQ-9 Questionnaire Referred to MD for counseling:: No Referral to Behavioral Health PS - Interventions: Yes: Attend Stress Management Classes Plan Interventions/Plan:: Assess stressors,coping strategies & signs of derpression on admission, Instruct/assist pt to develop coping & personal stress Mgt strategies, Refer to Behavioral Health if appropriate, Refer to Physician if appropriate, Instruct patient to recognize signs & symptoms of depression and Instruct patient to recog Psychosocial - Final Assess Visit Session Number:: 30 Problems/Goals History of Emotional Disorders: None Psychosocial Goals: 1. Patient is free from overwhelming symtoms of depression (or anxiety, 2. Identifies personal stressors & states the strategies for managing, 3. Identifies activities to decrease isolation and/or symptoms of, 4. Improved psychosocial coping skills., 5. Verbalizes coping strategies. and 7. Improved Q.O.L. Psychosocial Test Tool Used:: Pulmonary QOL and PHQ-9 Questionnaire Referred to MD for counseling:: No Referral to Behavioral Health PS - Interventions: Yes: Attend Stress Management Classes Plan Interventions/Plan:: Assess stressors,coping strategies & signs of derpression on admission, Instruct/assist pt to develop coping & personal stress Mgt strategies, Refer to Behavioral Health if appropriate, Refer to Physician if appropriate, Instruct patient to recognize signs & symptoms of depression and Instruct patient to recog Oxygen & Oxygen Titration Init Visit Session Number:: 30 Initial Assessment SpO2:: 91 Oxygen & Oxygen Titration 30D Visit Date of Eval: 09/12/24 Session Number:: 30 Reassessment SpO2:: 91 Oxygen & Oxygen Titration 60D Visit Date of Eval: 09/12/24 Session Number:: 30 Reassessment SpO2:: 91 Oxygen & Oxygen Titration 90D Visit Date of Eval: 09/12/24 Session Number:: 30 Reassessment Oxygen & Oxygen Titration 90 days: Oxygen w/activity (Pt is on 0-2 l/min with activity) SpO2:: 91 Oxygen & Oxygen Titration ANASTASIYA Visit Date of Eval: 09/12/24 Session Number:: 30 Reassessment SpO2:: 91 Core Components - Initial Visit Session Number:: 30 Hypertension Hypertension Diagnosis:: Not Applicable BP: 104/62 [place] [employer] Hypertension Guidelines Blood Pressure: 128/72 Outcomes/Goals: Able to verbalize/achieve optimal blood pressure <130/80 and Incorporates diet changes & exercise for blood pressure control by DC Tobacco - Initial Assessment Tobacco Program Goals Tobacco Use: Non-smoker Gave Education Materials For:: Tobacco Triggers, Pulmonary Disease, Risk Factors, Breathing Techniques, Medical Compliance, Pulmonary A&P, Exacerbation Signs & Symptoms and Stress & Relaxation Diabetes Diabetes:: No Core Components - 30 DAYS Visit Date of Eval: 09/12/24 Session Number:: 30 Hypertension Hypertension Diagnosis:: Not Applicable Resting Blood Pressure:: 104/62 [place] [employer] Hypertension Guidelines Peak Exercise Blood Pressure:: 128/72 Outcomes/Goals: Able to verbalize/achieve optimal blood pressure <130/80 and Incorporates diet changes & exercise for blood pressure control by DC Interventions/plan: Instruct on optimal blood pressure, hypertension & medications and Instruct on effects of sodium, alcohol, stress, exercise &hypertension 30 day Reassessments:: Met (Pt's BP's are within AHA normal limits.) Tobacco - 30-Day Tobacco Program Goals Tobacco Use: Non-smoker Gave Education Materials For:: Tobacco Triggers, Pulmonary Disease, Risk Factors, Breathing Techniques, Medical Compliance, Pulmonary A&P, Exacerbation Signs & Symptoms and Stress & Relaxation 30-day Reassessments:: Met (pt is a non smoker) Exacerbation Mgmt & Airway Clearance Bronchial Hygiene Plan: Yes: Pt demonstrates correctly for effective cough, Yes: Pt demo correct for CPT, Yes: Pt demo correct for device, Yes: Pt demo correct for NS nasal spray, Yes: Pt demo correct for sputum management, Yes: Pt demo correct for improved hydration, Yes: Pt demo correct for hand hygiene, Yes: Pt demo correct for evalute sputum, Yes: Pt demo correct for verbalize when to call MD and Yes: Pt demo correct for cleaning of respiratory equipment Medication Medication reassessment: Yes: Pt demonstrates correct technique timing for MDI, Yes: Pt demonstrates correct technique timing for DPI, Yes: Pt demonstrates correct technique timing for NEB and Yes: Pt demonstrates correct technique timing for spacer Diabetes Diabetes:: No Core Components - 60 DAYS Visit Session Number:: 30 Hypertension Hypertension Diagnosis:: Not Applicable Resting Blood Pressure:: 104/62 [place] [employer] Hypertension Guidelines Peak Exercise Blood Pressure:: 128/72 Outcomes/Goals: Able to verbalize/achieve optimal blood pressure <130/80 and Incorporates diet changes & exercise for blood pressure control by DC Interventions/plan: Instruct on optimal blood pressure, hypertension & medications and Instruct on effects of sodium, alcohol, stress, exercise &hypertension 60 day Reassessments:: Met (Pt's BP's are within AHA normal limits.) Tobacco - 60-Day Tobacco Program Goals Tobacco Use: Non-smoker Gave Education Materials For:: Tobacco Triggers, Pulmonary Disease, Risk Factors, Breathing Techniques, Medical Compliance, Pulmonary A&P, Exacerbation Signs & Symptoms and Stress & Relaxation 60-day Reassessments:: Met (pt is a non smoker) Exacerbation Mgmt & Airway Clearance Bronchial Hygiene Plan: Yes: Pt demonstrates correctly for effective cough, Yes: Pt demo correct for CPT, Yes: Pt demo correct for device, Yes: Pt demo correct for NS nasal spray, Yes: Pt demo correct for sputum management, Yes: Pt demo correct for improved hydration, Yes: Pt demo correct for hand hygiene, Yes: Pt demo correct for evalute sputum, Yes: Pt demo correct for verbalize when to call MD and Yes: Pt demo correct for cleaning of respiratory equipment Medication Medication reassessment: Yes: Pt demonstrates correct technique timing for MDI, Yes: Pt demonstrates correct technique timing for DPI, Yes: Pt demonstrates correct technique timing for NEB and Yes: Pt demonstrates correct technique timing for spacer Diabetes Diabetes:: No Core Components - 90 DAYS Visit Date of Eval: 09/12/24 Session Number:: 30 Hypertension Hypertension Diagnosis:: Not Applicable Resting Blood Pressure:: 104/62 [place] [employer] Hypertension Guidelines Peak Exercise Blood Pressure:: 128/72 Outcomes/Goals: Able to verbalize/achieve optimal blood pressure <130/80 and Incorporates diet changes & exercise for blood pressure control by DC Interventions/plan: Instruct on optimal blood pressure, hypertension & medications and Instruct on effects of sodium, alcohol, stress, exercise &hypertension 90 day Reassessments:: Met (Pt's BP's are within AHA normal limits.) Tobacco - 90-Day Tobacco Program Goals Tobacco Use: Non-smoker Gave Education Materials For:: Tobacco Triggers, Pulmonary Disease, Risk Factors, Breathing Techniques, Medical Compliance, Pulmonary A&P, Exacerbation Signs & Symptoms and Stress & Relaxation 90-day Reassessments:: Met (pt is a non smoker) Exacerbation Mgmt & Airway Clearance Reassessment: Demonstrates knowledge of O2 Rx at rest, Demonstrates knowledge of O2 Rx with exercise, Using O2 as prescribed and Uses port O2 as prescribed Bronchial Hygiene Plan: Yes: Pt demonstrates correctly for effective cough, Yes: Pt demo correct for CPT, Yes: Pt demo correct for device, Yes: Pt demo correct for NS nasal spray, Yes: Pt demo correct for sputum management, Yes: Pt demo correct for improved hydration, Yes: Pt demo correct for hand hygiene, Yes: Pt demo correct for evalute sputum, Yes: Pt demo correct for verbalize when to call MD and Yes: Pt demo correct for cleaning of respiratory equipment Medication Medication list reviewed:: Yes Taking medications 100% of the time:: Met (pt takes meds as prescribed) Medication reassessment: Yes: Pt demonstrates correct technique timing for MDI, Yes: Pt demonstrates correct technique timing for DPI, Yes: Pt demonstrates correct technique timing for NEB and Yes: Pt demonstrates correct technique timing for spacer Diabetes Diabetes:: No Core Components - Final Visit Session Number:: 30 Hypertension Hypertension Diagnosis:: Not Applicable Resting Blood Pressure:: 104/62 [place] [employer] Hypertension Guidelines Peak Exercise Blood Pressure:: 128/72 Outcomes/Goals: Able to verbalize/achieve optimal blood pressure <130/80 and Incorporates diet changes & exercise for blood pressure control by DC Tobacco - Final Tobacco Program Goals Tobacco Use: Non-smoker Exacerbation Mgmt & Airway Clearance Bronchial Hygiene Plan: Yes: Pt demonstrates correctly for effective cough, Yes: Pt demo correct for CPT, Yes: Pt demo correct for device, Yes: Pt demo correct for NS nasal spray, Yes: Pt demo correct for sputum management, Yes: Pt demo correct for improved hydration, Yes: Pt demo correct for hand hygiene, Yes: Pt demo correct for evalute sputum, Yes: Pt demo correct for verbalize when to call MD and Yes: Pt demo correct for cleaning of respiratory equipment Medication Medication reassessment: Yes: Pt demonstrates correct technique timing for MDI, Yes: Pt demonstrates correct technique timing for DPI, Yes: Pt demonstrates correct technique timing for NEB and Yes: Pt demonstrates correct technique timing for spacer Diabetes Diabetes:: No Patient Health Questionnaire PHQ-9 Screening 90-Day Re-eval Assessment: 1. Little interest or pleasure in doing things: Not at all 2. Feeling down, depressed, or hopeless: Several days 3. Trouble falling or staying asleep, or sleeping too much: Not at all 4. Feeling tired or having little energy: Nearly every day 5. Poor appetite or overeating: Not at all 6. Feeling bad about yourself -- or that you are a failure or have let yourself or your family down: Several days 7. Trouble concentrating on things, such as reading the newspaper or watching television: Not at all 8. Moving or speaking so slowly that other people could have noticed. Or the opposite - being so fidgety or restless that you have been moving around a lot more than usual: Not at all 9. Thoughts that you would be better off , or of hurting yourself in some way: Not at all How difficult have these problems made it for you to do your work, take care of things at home, or get along with other people?: Somewhat difficult Total Score: 5 Knowledge Questionaire (BCKQ) Information Information: [place] COPD Knowledge Questionnaire (BCKQ) This questionnaire is designed to find out what you know about your lung problem. It should be completed without help form anyone else. This usually takes between 10 and 20 minutes. Your answers will help us to find out what information you need to help you to understand and manage your lung condition. [place] which you think is the correct answer. Self-Efficacy 6-Item Scale 90-Day Re-eval Assessment: We would like to know how confident you are in doing certain activities. Please select your confidence level for: Fatigue Select Number: 3 Physical Discomfort or Pain Select Number: 3 Emotional Distress Select Number: 3 Other Symptoms or Health Problems Select Number: 3 Different Tasks and Activities Select Number: 4 Medication Select Number: 3 Total Score:: 3 Nutrition Survey Nutrition Survey Instructions Scoring Instructions
[2024-09-12 08:21] VITALS: BP 104/62; O2SAT 91
[2024-09-12 08:32] VITALS: BP 104/62; BP 128/72; BMI 21.4
== END 2024-09-14 23:59 ==
LOC: PR 13:00
PROVIDERS: PCP Student in an Organized Health Care Education/Training Program
DX: J84.9 Interstitial pulmonary disease, unspecified (principal)
CPT/HCPCS: 97150; G0239

== ENCOUNTER 2024-09-26 13:00 | Outpatient (RCR) | payer MEDICARE, SELFPAY ==
[2024-09-12 08:32] VITALS: BMI 21.4
[2024-09-15 02:07] VITALS: BP 104/62; BP 128/72; BMI 21.4
== END 2024-10-12 23:59 ==
LOC: PR 13:00
PROVIDERS: PCP Student in an Organized Health Care Education/Training Program
DX: J84.9 Interstitial pulmonary disease, unspecified (principal)
CPT/HCPCS: 97150; G0239